=== PATIENT | male | born 1935 | race Caucasian/White ===

== ENCOUNTER 2017-02-24 09:59 | Inpatient (IN) ==
[2017-02-24] MEDS ORDERED: Naloxone 0.4 MG/ML INJ IVP PRN (13:40)
[2017-02-24] MEDS ORDERED: Ondansetron 4 MG/2 ML VIAL IVP PRN (13:40)
[2017-02-24] MEDS ORDERED: *HR* Dextrose 50 % in Water (Syg) 50 ML SYRINGE IVP PRN (13:59)
[2017-02-24] MEDS ORDERED: Dextrose Gel 15 GM PO PRN ×2 (13:59)
[2017-02-24] MEDS ORDERED: D5% in Water 1,000 ML IVC PRN (13:59)
[2017-02-24] MEDS ORDERED: *HR* Heparin 5,000 UNIT/ML VIAL IVP ONE (14:16)
[2017-02-24] MEDS ORDERED: *HR* Heparin 5,000 UNIT/ML VIAL IVP PRN ×2 (14:16)
--- NOTE | 2017-02-24 14:18 | Internal Med History&Physical ---
Date of Encounter: 02/24/17 Time of Encounter: 13:00 Assessment and Plan (1) NSTEMI (non-ST elevated myocardial infarction) Current visit: No Status: Acute 1 patient has been experiencing increasing shortness of breath as well as intermittent chest pressure which is relieved with rest. He does have a past cardiac history with a CABG 10 years ago. Upon presentation to the ER patient is atrial fibrillation which is new onset. He also appears to be in heart failure Initial troponin was 0 however continues to rise over the next 24 hours presently at 0.9 patient has been initiated on a heparin drip. Cardiology has been consulted and will see patient 2 we will obtain cardiac echo 3 continuous cardiac monitoring 4 aspirin, statin we will obtain lipid profile (2) Atrial fibrillation Current visit: Yes Status: Acute 1 this appears to be a new onset of atrial fibrillation. Patient denies any past history denies any recent palpitations. Presently rate is 90-100 we will initiate on a heparin drip 2 consult cardiology 3 continuous cardiac monitoring Qualifiers: Atrial fibrillation type: paroxysmal Qualified Code(s): I48.0 - Paroxysmal atrial fibrillation (3) DM type 2 (diabetes mellitus, type 2) Current visit: No Status: Chronic Accu-Cheks before meals at bedtime with sliding scale insulin we will hold oral medications for now Qualifiers: Diabetes mellitus complication status: without complication Diabetes mellitus rn long term care insulin use: without retirement use Qualified Code(s): E11.9 - Type 2 diabetes mellitus without complications (4) CHF (congestive heart failure) Current visit: Yes Status: Acute 1 patient has a past history of heart failure suspect this relates to atrial fibrillation which is a new onset. We will continue with Lasix 20 mg IV daily 2 continuous cardiac monitoring 3 monitor intake and output daily weights 4 low-sodium diet 5 Will obtain cardiac echo 6 cardiology consult did Qualifiers: Congestive heart failure type: unspecified congestive heart failure type Congestive heart failure chronicity: acute Qualified Code(s): I50.9 - Heart failure, unspecified (5) EVER (acute kidney injury) Current visit: Yes Status: Acute 1 patient's creatinine is 1.26 which is up from previous of 0.84, we will continue diuresis patient and monitor creatinine Monitor intake and output daily weights Monitor electrolytes Internal Medicine - H&P: HPI Chief complaint: cough,CP Admitted From: Emergency Dept Plans for Post Hospital Care: Home History of present illness: Mr. Lang is a 81 year old male past medical history of coronary artery disease with a CABG in 2011 diabetes GERD hyperlipidemia hypertension COPD PAD. According to the patient approximately 2 weeks ago he received his flu shot 2 days later he began to notice nonproductive cough. He continued to experience a cough as well as developing dyspnea which lasted approximately a week. He will send has been experiencing midsternal chest pressure that radiated into his back which occurs on exertion and is relieved with rest. The pressure started roughly 5 days ago. He does have a past history of ASHD status post 4 vessel CABG approximately 2011. He denies any stress test or heart catheter since the Surgery. He presented to the [facility] emergency department upon presentation patient was in atrial fibrillation he denies any past history of atrial fibrillation denies any palpitations. Chest x-ray showed some muscular congestion he has had lower extremity edema as well as elevated BNP. He has had increasing troponins. She was transferred to this facility for further evaluation. He is presently patient does not appear to be in any respiratory distress he denies any chest pain this time. He continues to be in atrial fibrillation with a rate of 100 blood pressure is stable. Did review his case with Dr. Pritchett who agree with plan Past Med Surg Social Fam HX - Past Medical History Medical history: arthritis, coronary artery disease, diabetes, GERD, hyperlipidemia, hypertension, myocardial infarction, peripheral artery disease, syncope Psychiatric history: no psych history - Past Surgical History Surgical History: appendectomy, coronary bypass (CABG), herniorrhaphy, LE vascular intervention, orthopedic, other - Social History Smoking Status: Never smoker Smokeless Tobacco Status: No Alcohol use: none Drug use: none - Family History Father Living Status: Hx Family Cardiac Disorders: Yes Mother Living Status: Internal Medicine - H&P: Meds Glimepiride [Amaryl] 4 mg PO DAILY 11/03/15 [History] Torsemide [Demadex] 10 mg PO DAILY 03/15/16 [History] Lisinopril/Hydrochlorothiazide [Zestoretic 20-25 mg Tablet] 1 tab PO DAILY 02/24 [History] Potassium Chloride [Klor-Con Sprinkle] 8 meq PO BID 02/24/17 [History] 3 Allergy/AdvReac Type Severity Reaction Status Date / Time No Known Allergies Allergy Verified 02/23/17 16:02 All Systems PM: A 10-system review of systems was performed and is negative for pertinent findings except as documented above in the HPI. - Constitutional Constitutional: no chills, no fever(s), no night sweats - EENT Eyes: no change in vision, no discharge, no pain, no photophobia Nose, mouth and throat: no dysphagia, no nasal discharge, no neck pain, no sore throat - Cardiovascular Cardiovascular ROS IM: chest pain, dyspnea on exertion, edema, no diaphoresis, no dyspnea, no lightheadedness, no palpitations, no syncope - Respiratory Respiratory: dyspnea on exertion, excessive phlegm production, no cough, no dyspnea, no wheezing - Gastrointestinal Gastrointestinal: no abdominal pain, no diarrhea, no hematemesis, no hematochezia, no melena, no nausea, no vomiting - Musculoskeletal Musculoskeletal ROS IM: no numbness, no tingling - Integumentary Integumentary IM: no rash, no unusual bruising - Neurological Neurological ROS: no confusion, no convulsions, no focal weakness, no numbness, no tingling, no tremor(s) - Hematologic/Lymphatic Hematologic/Lymphatic: no easy bruising - Constitutional Vitals: Temp Pulse Resp BP Pulse Ox 97.6 F 105 18 135/76 95 02/24/17 12:35 02/24/17 12:35 02/24/17 12:35 02/24/17 12:35 02/24/17 12:35 General appearance: Present: A&O X 3, answers questions appropriately - Head Head exam: Present: atraumatic, normocephalic - Eye Eye exam: Present: PERRL, conjuntiva pink, sclera anicteric Pupils: Present: PERRL - Neck Neck exam general surgery: Present: supple, trachea midline. Absent: lymphadenopathy - Respiratory Respiratory exam: Present: CTAB. Absent: accessory muscle use, rales, rhonchi, wheezes - Cardiovascular Cardiovascular exam: Present: RRR, +S1, +S2. Absent: diastolic murmur, gallop, rubs, systolic murmur - GI/Abdominal GI/Abdominal exam: Present: normal bowel sounds, soft, no peritoneal signs. Absent: distended, tenderness - Extremities Exam Extremities exam: Present: pedal edema, warm, radial pulses palpable and symmetrical. Absent: calf tenderness, cyanotic - Neurological Exam Neurological exam: Present: CN II-XII intact, oriented X3, no focal deficits. Absent: pronater drift, facial droop, speech deficit - Skin Skin exam: Present: dry, intact Internal Med - H&P Results - Labs CBC & Chem 7: 02/24/17 14:26 - EKG Data When compared to previous EKG: there is no significant change EKG comments: 02/24/17 14:59 Afib
[2017-02-24] MEDS ORDERED: Heparin 25,000 UNIT/500 ML D5W 25,000 UNIT/500 ML MLS IVC SCH (14:30)
[2017-02-24 14:47] LABS: Hematocrit 35.3 % (37.5-50.1); Hemoglobin 11.4 g/dL (12.9-16.9); Mean Corpuscular HGB Conc 32.3 g/dL (31.6-35.5); Mean Corpuscular Hemoglobin 28.2 pg (28.0-33.3); Mean Corpuscular Volume 87.4 fL (83.0-100.0); Mean Platelet Volume 13.6 fL (9.4-12.4); Platelet Count 131 K/mcL (140-400); Red Blood Count 4.04 M/mcL (4.19-5.50); Red Cell Distribution Width 12.7 % (11.5-14.5)
[2017-02-24 14:52] LABS: INR 1.3; Prothrombin Time 13.6 Seconds (9.4-12.1)
[2017-02-24 14:55] LABS: Activated Partial Thrombo Time 36.3 Seconds (26.0-36.0)
[2017-02-24] MEDS: Insulin LISPRO 300 UNITS/3 ML VIAL SQ SCH (17:12)
[2017-02-24] MEDS ORDERED: Insulin LISPRO 300 UNITS/3 ML VIAL SQ SCH (21:00)
[2017-02-25] MEDS: Benzonatate 100 MG CAPSULE PO PRN (00:43)
[2017-02-25] MEDS ORDERED: Ketorolac 15 MG/ML VIAL IVP ONE (01:04)
[2017-02-25 02:01] LABS: Basophils % 0.1 %; Eosinophils # 0.1 K/mcL (0.0-0.6); Eosinophils % 0.6 %; Hematocrit 36.6 % (37.5-50.1); Hemoglobin 11.6 g/dL (12.9-16.9); Immature Granulocytes % 0.6 % (0-4); Lymphocytes # 1.6 K/mcL (0.6-4.6); Lymphocytes % 17.7 %; Mean Corpuscular HGB Conc 31.7 g/dL (31.6-35.5); Mean Corpuscular Hemoglobin 27.8 pg (28.0-33.3); Mean Corpuscular Volume 87.8 fL (83.0-100.0); Mean Platelet Volume 13.1 fL (9.4-12.4); Monocytes # 0.7 K/mcL (0.0-1.3); Monocytes % 7.8 %; Neutrophils # 6.4 K/mcL (1.6-8.9); Platelet Count 151 K/mcL (140-400); Red Blood Count 4.17 M/mcL (4.19-5.50); Segmented Neutrophils % 73.2 %
[2017-02-25 02:13] LABS: Calcium 9.2 mg/dL (8.6-10.8); Chol/HDL Ratio 3.9 (0-4.9); Magnesium 2.1 mg/dL (1.6-2.6); Potassium 4.5 mEq/L (3.5-4.5)
[2017-02-25] MEDS ORDERED: *HR* OxyCODONE/APAP 5/325 TABLET PO ONE (05:01)
[2017-02-25] MEDS ORDERED: Insulin LISPRO 300 UNITS/3 ML VIAL SQ SCH ×2 (07:45→21:00)
--- NOTE | 2017-02-25 08:45 | Cardiology Consult Note ---
<Tej Lang - Last Filed: 02/25/17 13:32> Date of Encounter: 02/25/17 Time of Encounter: 08:45 Assessment and Plan (1) Elevated troponin Current Visit: Yes Status: Acute Trop 0.90 > 0.70 > 0.67 Likely demand ischemia origin. Denies any chest pain. No ischemic changes on EKG ECHO pending Do not recommend LHC at this time d/t acute hematoma. Recommend medical therapy at this time and will re-evaluate as an outpatient. Optimize regimen - Adding Toprol 12.5mg qd and Atorvastatin 20mg qd. Continue ASA and Plavix. (2) New onset atrial fibrillation Current Visit: Yes Status: Acute Rate in 80s today ECHO pending Start Toprol therapy that will also benefit his CHF CHADS-VASC Score = 5. Patient requires full anticoagulation therapy but will hold off d/t hematoma. ASA ok for now. Will re-visit the transition to full anticoagulation as an outpatient. (3) CHF (congestive heart failure) Current Visit: Yes Status: Chronic ECHO pending BNP 1253 Takes Demadex at home. Continue IV Lasix daily Trace edema bilateral LE No acute fluid overload Adding Toprol 12.5mg qd Qualifiers: Congestive heart failure type: unspecified congestive heart failure type Congestive heart failure chronicity: acute Qualified Code(s): I50.9 - Heart failure, unspecified (4) Abdominal wall hematoma Current Visit: Yes Status: Acute Abd CT shows hematoma in the left abdominal rectus muscle measuring approximately 10.0 x 2.6 x 11.0 cm ASA ok to use at this time. Qualifiers: Encounter type: initial encounter Qualified Code(s): S30.1XXA - Contusion of abdominal wall, initial encounter (5) EVER (acute kidney injury) Current Visit: Yes Status: Acute Medicine following. (6) Hypertension Current Visit: No Status: Chronic Appears to be stable at this time. Taking Zestoretic at home. Qualifiers: Hypertension type: essential hypertension Qualified Code(s): I10 - Essential (primary) hypertension (7) DM type 2 (diabetes mellitus, type 2) Current Visit: No Status: Chronic Defer to medicine team for management. Qualifiers: Diabetes mellitus complication status: with circulatory complication Diabetes mellitus complication detail: with peripheral angiopathy without gangrene Diabetes mellitus intermediate frame tender insulin use: without usp use Qualified Code(s): E11.51 - Type 2 diabetes mellitus with diabetic peripheral angiopathy without gangrene (8) Hyperlipidemia Current Visit: No Status: Chronic Continue home statin therapy Qualifiers: Hyperlipidemia type: unspecified Qualified Code(s): E78.5 - Hyperlipidemia , unspecified (9) PVD (peripheral vascular disease) Current Visit: No Status: Chronic (10) Chronic stasis dermatitis Current Visit: No Status: Chronic Discussion w patient/family: The assessment and plan as outlined above was discussed with the patient and/or family members who expressed understanding and agreement. All questions were answered. Thank you for involving us in the care of your patient. Please call with any questions. History of Present Illness Chief complaint: shortness of breath History of present illness: Mr. Lang is a very pleasant 81 year old male with a past medical history of CAD, DM, GERD, HTN, COPD, PAD, Hemochromatosis, and CHF who presented to the [facility] ED after transfer from [facility] with a chief complaint of shortness of breath. He states that over the last couple weeks he was experiencing worsening dypsnea without any chest pain. Denies any palpitations, orthopnea or PND. On arrival to the ED, patient was found to be in new onset atrial fibrillation with RVR. Troponins were elevated at 0.90 > 0.70 > 0.67. No ischemic changes on EKG. CXR shows very small right plueral effusion. Patient was started on Heparin drip for NSTEMI workup, admitted via the hospitalist service and thus, cardiology was consulted. On evaluation, heart rate was now in 80s without any new chest pains. ECHO pending. Patient reports that he quit smoking 30 years ago with no EtOH use. Family history of CHF, DM and LA. Yesterday, patient sat up and felt a "pop in my belly" and CT of the abd demonstrated a large hematoma in his left rectus abdominus muscle and findings consisted with gallbladder disease. Heparin was discontinued and surgery consulted. RUQ US pending as well. He reports significant abdominal pain with sitting up in bed and coughing. We will continue to follow and offer further recommendations or interventions. Past Med Surg Social Fam HX - Past Medical History Medical history: arthritis, coronary artery disease, diabetes, GERD, hyperlipidemia, hypertension, myocardial infarction, peripheral artery disease, syncope Psychiatric history: no psych history - Past Surgical History Surgical History: appendectomy, coronary bypass (CABG), herniorrhaphy, LE vascular intervention, orthopedic, other - Social History Smoking Status: Never smoker Smokeless Tobacco Status: No Alcohol use: none Drug use: none - Family History Father Living Status: Hx Family Cardiac Disorders: Yes Mother Living Status: Medications and Allergies Glimepiride [Amaryl] 4 mg PO DAILY 11/03/15 [History] Torsemide [Demadex] 10 mg PO DAILY 03/15/16 [History] Lisinopril/Hydrochlorothiazide [Zestoretic 20-25 mg Tablet] 1 tab PO DAILY 02/24 [History] Potassium Chloride [Klor-Con Sprinkle] 8 meq PO BID 02/24/17 [History] 3 Allergy/AdvReac Type Severity Reaction Status Date / Time No Known Allergies Allergy Verified 02/23/17 16:02 All Systems Review: A 10-system review of systems was performed and is negative for pertinent findings except as documented above in the HPI. - Constitutional Constitutional: no fever(s) - Cardiovascular Cardiovascular: as per HPI - Respiratory Respiratory: dyspnea - Gastrointestinal Gastrointestinal: abdominal pain - Musculoskeletal Musculoskeletal: back pain - Integumentary Integumentary: no erythema - Neurological Neurological: no focal weakness Physical Examination Vital Signs, Last 4 Hours Temp Pulse Resp BP Pulse Ox 02/25/17 07:20 97.5 F L 85 16 126/76 96 General: Conversant, No Apparent Distress HEENT: Atraumatic, Normocephaly, Mucus Membranes Moist Neck: No JVD, Normal carotid pulses Cardiac: Normal S1 and S2, Other (irregular irregular) Lungs: Normal Breath Sounds, No Wheeze, Rales, Rhonchi Neuro: Alert and responsive, No focal deficits noted Abdomen: Other (large, TTP, hematoma lateral to midline between LUQ/LLQ) Musculoskeletal: No Chest Wall Tenderness Extremities: Other (trace edema bilateral, stasis dermatitis, bilateral tow amputations) Results 02/25/17 01:47 02/25/17 01:47 Lab Results 02/24/17 02/24/17 02/24/17 14:09 14:26 14:26 WBC 7.9 D Hgb 11.4 L Hct 35.3 L Plt Count 131 L INR 1.3 APTT 36.3 H Sodium Potassium Chloride Carbon Dioxide BUN Creatinine Glucose Calcium Magnesium Troponin I 0.90 H* Lipase 02/24/17 02/24/17 02/25/17 19:52 21:08 01:47 WBC Hgb Hct Plt Count INR APTT 44.8 H Sodium Potassium Chloride Carbon Dioxide BUN Creatinine Glucose Calcium Magnesium Troponin I 0.70 H* 0.67 H* Lipase 02/25/17 02/25/17 02/25/17 01:47 01:47 04:55 WBC 8.7 Hgb 11.6 L Hct 36.6 L Plt Count 151 INR APTT Sodium 138 Potassium 4.5 Chloride 103 Carbon Dioxide 26 BUN 42 H D Creatinine 1.46 H Glucose 222 H Calcium 9.2 Magnesium 2.1 Troponin I Lipase 30 - Imaging and Cardiology Chest Xray: report reviewed, image reviewed Echo: other (pending) Other Results: Abd CT - Report and image reviewed - EKG Interpretation EKG results cardiology: personally reviewed, right bundle branch block, other ( afib) Consult Discharge Plan - Plan Referrals: Shirley Sebastian, HOSPITALITY SPECIALIST [Primary Care Provider] - <Bri Vogel - Last Filed: 02/25/17 17:53> Date of Encounter: 02/25/17 - Attending Attestation I examined this patient and my medical decision-making was reviewed with the Resident Physician. I agree with the documented findings, disposition and treatment plan as described except to the extent set forth below. Mr. Lang was transfered from [facility] for worsening SOB which he has noticed over the past few weeks. He was noticed to be in newly discovered AFIB RVR upon admission with elevated troponin. Incidentally, he was found to also have a large hematoma in his left rectus abdominus muscle on CT after experiencing abdominal discomfort. PLAN: 1. AFIB RVR: Patient is now rate controlled in the 80's. Recommend starting low dose Toprol. Echo pending. CHADSVASC score is 5 - ideally would recommend full anticoagulation. However, given development of large hematoma, recommend against blood thinning therapy. Can be reconsidered as an outpatient. 2. Elevated troponin: May be related to demand ischemia in setting of AF RVR. However, does have a history of CAD. Further recommendations following echo results. For now, recommend antiplatelet therapy, statin and adding beta aidan. 3. Edema: Recommend IV diuresis with careful watch on kidney function. Assessment and Plan Discussion w patient/family: The assessment and plan as outlined above was discussed with the patient and/or family members who expressed understanding and agreement. All questions were answered. Thank you for involving us in the care of your patient. Please call with any questions. History of Present Illness History of present illness: Mr. Lang is a 81 year old male All Systems Review: A 10-system review of systems was performed and is negative for pertinent findings except as documented above in the HPI. Physical Examination Vital Signs, Last 4 Hours Temp Pulse Resp BP Pulse Ox 02/25/17 16:38 125/80 02/25/17 13:59 97.5 F L 86 14 134/76 96 Results 02/25/17 01:47 02/25/17 01:47 Lab Results 02/24/17 02/24/17 02/25/17 19:52 21:08 01:47 WBC Hgb Hct Plt Count APTT 44.8 H Sodium Potassium Chloride Carbon Dioxide BUN Creatinine Glucose Calcium Magnesium Troponin I 0.70 H* 0.67 H* Lipase 02/25/17 02/25/17 02/25/17 01:47 01:47 04:55 WBC 8.7 Hgb 11.6 L Hct 36.6 L Plt Count 151 APTT Sodium 138 Potassium 4.5 Chloride 103 Carbon Dioxide 26 BUN 42 H D Creatinine 1.46 H Glucose 222 H Calcium 9.2 Magnesium 2.1 Troponin I Lipase 30
--- NOTE | 2017-02-25 08:47 | General Surgery Consult Note ---
<Anyi Perez - Last Filed: 02/25/17 12:28> Date of Encounter: 02/25/17 Time of Encounter: 08:47 Assessment and Plan (1) Cholelithiasis Current Visit: Yes Status: Acute Abdominal ultrasound noted mild gall bladder wall thickening and cholithias, positive gleason's sign; however patient states related to hematoma. He denies abdominal pain, (outside the hematoma site), denies abdominal pain at home, and states he only feels nauseated when he eats spicy foods. Plan: No urgent surgical intervention noted. Would recommend IV abx currently and patient to follow-up for possible interval cholecystectomy when safe from a cardiology standpoint. Will review above with Dr. Benton. Qualifiers: Cholelithiasis location: gallbladder Cholecystitis presence: without cholecystitis Biliary obstruction: without biliary obstruction Qualified Code(s): K80.20 - Calculus of gallbladder without cholecystitis without obstruction (2) Abdominal wall hematoma Current Visit: Yes Status: Acute Qualifiers: Encounter type: initial encounter Qualified Code(s): S30.1XXA - Contusion of abdominal wall, initial encounter (3) NSTEMI (non-ST elevated myocardial infarction) Current Visit: No Status: Acute (4) Atrial fibrillation Current Visit: Yes Status: Acute Qualifiers: Atrial fibrillation type: paroxysmal Qualified Code(s): I48.0 - Paroxysmal atrial fibrillation (5) EVER (acute kidney injury) Current Visit: Yes Status: Acute History of Present Illness Consult date: 02/25/17 (Dr. Benton) Reason for consult: other Requesting physician: Jeremy Salazar History of present illness: Reason For Consult: CT Findings compatible with hematoma in the left abdominal rectus muscle. In addtition to Multiple gallstones and questionable pericholecystic edema with cholecystitis. Consulting Provider: Dr. Jeremy Salazar Consulted Surgeon: Dr. Laurie Valderrama Mr. Lang is an 81 year old male who presented with complaints of chest pain. Notably his past medical history includes a remote H approximately 10 years ago (vessels are unknown at this time), new onset paroxysmal atrial fibrillation, type II diabetes, hypertension, hyperlipidemia, peripheral vascular disease, CHF, azotemia, and kidney injury. He reports a two-week history of cough and chest discomfort with which he associated with a recent flu shot. He had been to see his primary care provider who noted a NSTEMI and recommended evaluation the emergency department for admission. He denies headache, dizziness, chest pain, or shortness of breath, or abdominal discomfort currently. He does report left upper/outer abdominal wall discomfort associated with "this great big knot in my belly now." He reports nausea only if he eats spicy food. Denies constipation or diarrhea. He denies changes in bowel habits, black, bloody, or tarry stool. He denies generalized weakness or fevers. He endorses cough and chest discomfort associated with the cough that is not changed since his presentation. His hospital course has included initiation of heparin gtt for NSTEMI, CXR showing tiny right pleural effusion, and subsequently a CT of the abdomen and pelvis with findings compatible with a hematoma in the left abdominal rectus muscle (heparin has been stopped), multiple gallstones, and questionable pericholecystic edema with concerns for cholecystitis. An echo and Shmuel ultrasound have been completed but are not resulted at this time. His troponin I remains elevated at 0.67 and his white blood cell count is normal. Past Med Surg Social Fam HX - Past Medical History Medical history: arthritis, coronary artery disease, diabetes, GERD, hyperlipidemia, hypertension, myocardial infarction, peripheral artery disease, syncope Psychiatric history: no psych history - Past Surgical History Surgical History: appendectomy, coronary bypass (CABG), herniorrhaphy, LE vascular intervention, orthopedic, other - Social History Smoking Status: Never smoker Smokeless Tobacco Status: No Alcohol use: none Drug use: none - Family History Father Living Status: Hx Family Cardiac Disorders: Yes Mother Living Status: Medications and Allergies Glimepiride [Amaryl] 4 mg PO DAILY 11/03/15 [History] Torsemide [Demadex] 10 mg PO DAILY 03/15/16 [History] Lisinopril/Hydrochlorothiazide [Zestoretic 20-25 mg Tablet] 1 tab PO DAILY 02/24 [History] Potassium Chloride [Klor-Con Sprinkle] 8 meq PO BID 02/24/17 [History] 3 Allergy/AdvReac Type Severity Reaction Status Date / Time No Known Allergies Allergy Verified 02/23/17 16:02 Review of Systems All systems PM: reviewed and no additional remarkable complaints except as stated All systems PM: A 10-system review of systems was performed and is negative for pertinent findings except as documented above in the HPI. General Surgery Exam Initial Vital Signs Temp Pulse Resp BP Pulse Ox 97.6 F 105 18 135/76 95 02/24/17 12:35 02/24/17 12:35 02/24/17 12:35 02/24/17 12:35 02/24/17 12:35 - General physical appearance well developed, well nourished, moderate distress (states left abdominal pain) - Eyes other (noted left eye lid scarring) - ENT atraumatic, normocephalic - Neck trachea midline - Respiratory normal expansion, normal respiratory effort, clear to auscultation - Cardiovascular Cardiovascular exam: Present: irregular rhythm, murmurs - Abdomen Abdomen general surgery: Present: bowel sounds present, tender (LUQ). Absent: soft (Firm area in the LUQ aprox grapefruit size. No redness noted.) Hernia: Present: none - Integumentary Integumentary general surgery: Present: warm and dry, no abnormal pigmentation - Neurologic Present: CN 2-12 grossly intact, normal coordination, normal sensation - Musculoskeletal Present: normal gait, normal posture - Psychiatric Psychiatric general surgery: Present: A&Ox3, appropriate, oriented to person, oriented to place, oriented to time, speech is normal, memory intact Exam Initial Vital Signs Temp Pulse Resp BP Pulse Ox 97.6 F 105 18 135/76 95 02/24/17 12:35 02/24/17 12:35 02/24/17 12:35 02/24/17 12:35 02/24/17 12:35 Results - Labs 02/25/17 01:47 02/25/17 01:47 Abnormal lab results RBC 4.17 M/mcL (4.19-5.50) L 02/25/17 01:47 Hgb 11.6 g/dL (12.9-16.9) L 02/25/17 01:47 Hct 36.6 % (37.5-50.1) L 02/25/17 01:47 MCH 27.8 pg (28.0-33.3) L 02/25/17 01:47 MPV 13.1 fL (9.4-12.4) H 02/25/17 01:47 PT 13.6 Seconds (9.4-12.1) H 02/24/17 14:26 APTT 44.8 Seconds (26.0-36.0) H 02/24/17 21:08 BUN 42 mg/dL (8-26) H D 02/25/17 01:47 Creatinine 1.46 mg/dL (0.72-1.25) H 02/25/17 01:47 Est GFR ( Amer) 56 (> 60) L 02/25/17 01:47 Est GFR (Non-Af Amer) 46 (> 60) L 02/25/17 01:47 BUN/Creatinine Ratio 29 (6-26) H 02/25/17 01:47 Glucose 222 mg/dL (70-99) H 02/25/17 01:47 POC Glucose 113 (58-89) H 02/24/17 20:02 Calculated Osmolality 303 (280-300) H 02/25/17 01:47 Troponin I 0.67 ng/mL (0-0.03) H* 02/25/17 01:47 HDL Cholesterol 35 mg/dL (40-59) L 02/25/17 01:47 Diabetes panel 02/25/17 Range/Units 01:47 Sodium 138 (136-145) mEq/L Potassium 4.5 (3.5-4.5) mEq/L Chloride 103 (98-109) mEq/L Carbon Dioxide 26 (19-29) mEq/L BUN 42 H D (8-26) mg/dL Creatinine 1.46 H (0.72-1.25) mg/dL Glucose 222 H (70-99) mg/dL Calcium 9.2 (8.6-10.8) mg/dL Triglycerides 71 (< 150) mg/dL HDL Cholesterol 35 L (40-59) mg/dL Calcium panel 02/25/17 Range/Units 01:47 Calcium 9.2 (8.6-10.8) mg/dL Pituitary panel 02/25/17 Range/Units 01:47 Sodium 138 (136-145) mEq/L Potassium 4.5 (3.5-4.5) mEq/L Chloride 103 (98-109) mEq/L Carbon Dioxide 26 (19-29) mEq/L BUN 42 H D (8-26) mg/dL Creatinine 1.46 H (0.72-1.25) mg/dL Glucose 222 H (70-99) mg/dL Calcium 9.2 (8.6-10.8) mg/dL Adrenal panel 02/25/17 Range/Units 01:47 Sodium 138 (136-145) mEq/L Potassium 4.5 (3.5-4.5) mEq/L Chloride 103 (98-109) mEq/L Carbon Dioxide 26 (19-29) mEq/L BUN 42 H D (8-26) mg/dL Creatinine 1.46 H (0.72-1.25) mg/dL Glucose 222 H (70-99) mg/dL Calcium 9.2 (8.6-10.8) mg/dL All other labs normal. - Imaging Chest x-ray: report reviewed CT scan - abdomen: report reviewed EKG: report reviewed Additional studies: Chest/Abdomen X-ray 02/25/17 00:05 IMPRESSION: Tiny right pleural effusion. No bowel obstruction or free air. D/ / 02/25/2017 07:15:00 Duncan Olivia MD / norberto Interpreting Provider: Duncan Olivia MD Abdomen CT 02/25/17 02:19 IMPRESSION: 1. Findings compatible with hematoma in the left abdominal rectus muscle. 2. Multiple gallstones. Question pericholecystic edema which can be seen with cholecystitis. Ultrasound may be helpful for further assessment as indicated. 3. Right pleural effusion. D/ / 02/25/2017 07:25:29 Robin Youngblood MD / norberto Interpreting Provider: Robin Youngblood MD Consult Discharge Plan - Plan Referrals: Shirley Sebastian, AUTO BODY MECHANIC APPRENTICE [Primary Care Provider] - <Laurie Benton - Last Filed: 02/26/17 16:23> Date of Encounter: 02/25/17 Assessment and Plan (1) Abdominal wall hematoma Current Visit: Yes Status: Acute patient with a new abdominal wall hematoma due to anticoagulation no role for surgical intervention at this time pain control ice to area stool softeners Qualifiers: Encounter type: initial encounter Qualified Code(s): S30.1XXA - Contusion of abdominal wall, initial encounter (2) Cholelithiasis Current Visit: Yes Status: Acute patient with incidental gallstones and without symptoms. no need for surgical intervention. discussed with patient what symptoms of gallbladder disease would be and to call if any of those symptoms occur will sign off currently, please call back if needed Qualifiers: Cholelithiasis location: gallbladder Cholecystitis presence: without cholecystitis Biliary obstruction: without biliary obstruction Qualified Code(s): K80.20 - Calculus of gallbladder without cholecystitis without obstruction History of Present Illness Reason for consult: abdominal pain History of present illness: Patient is here in hospital for chest pain. He diagnosed with an NSTEMI and started on a heparin drip. He started having left abdominal pain and a CT scan of the abdomen and pelvis was done which showed a left rectus hematoma and incidental gallstones and possible pericholecystic fluid. Patient denies any RUQ pain, nausea or emesis. He has had a history of those symptoms remotely in the past but nothing recently or currently. Denies diarrhea. US gallbladder showed stones, no wall thickening or pericholecystic fluid and normal cbd. Past Med Surg Social Fam HX - Past Medical History Source: patient - Social History Occupational status: previously employed Current living situation: Home, With Family Review of Systems All systems PM: reviewed and no additional remarkable complaints except as stated All systems PM: A 10-system review of systems was performed and is negative for pertinent findings except as documented above in the HPI. General Surgery Exam Initial Vital Signs Temp Pulse Resp BP Pulse Ox 97.6 F 105 18 135/76 95 02/24/17 12:35 02/24/17 12:35 02/24/17 12:35 02/24/17 12:35 02/24/17 12:35 - General physical appearance well developed, well nourished, moderate distress - Eyes PERRL, normal ocular movement - ENT normal mucosa - Neck trachea midline - Respiratory normal expansion, normal respiratory effort - Abdomen Abdomen general surgery: Present: bowel sounds present, soft (RUQ without pain) , tender (left abdomen and firm at area of abdominal wall hematoma). Absent: guarding, rebound - Integumentary Integumentary general surgery: Present: warm and dry, no abnormal pigmentation - Neurologic Present: CN 2-12 grossly intact - Musculoskeletal Present: normal posture - Psychiatric Psychiatric general surgery: Present: A&Ox3, speech is normal Exam Initial Vital Signs Temp Pulse Resp BP Pulse Ox 97.6 F 105 18 135/76 95 02/24/17 12:35 02/24/17 12:35 02/24/17 12:35 02/24/17 12:35 02/24/17 12:35 Results - Labs 02/26/17 05:23 02/26/17 05:23 Abnormal lab results RBC 3.52 M/mcL (4.19-5.50) L 02/26/17 05:23 Hgb 9.8 g/dL (12.9-16.9) L D 02/26/17 05:23 Hct 31.2 % (37.5-50.1) L 02/26/17 05:23 MCH 27.8 pg (28.0-33.3) L 02/26/17 05:23 MCHC 31.4 g/dL (31.6-35.5) L 02/26/17 05:23 MPV 13.2 fL (9.4-12.4) H 02/26/17 05:23 PT 13.6 Seconds (9.4-12.1) H 02/24/17 14:26 Carbon Dioxide 33 mEq/L (19-29) H 02/26/17 05:23 BUN 40 mg/dL (8-26) H 02/26/17 05:23 Creatinine 1.27 mg/dL (0.72-1.25) H 02/26/17 05:23 Est GFR (Non-Af Amer) 55 (> 60) L 02/26/17 05:23 BUN/Creatinine Ratio 31 (6-26) H 02/26/17 05:23 Glucose 68 mg/dL (70-99) L 02/26/17 05:23 POC Glucose 318 (58-89) H 02/25/17 20:06 Calcium 8.5 mg/dL (8.6-10.8) L 02/26/17 05:23 Troponin I 0.67 ng/mL (0-0.03) H* 02/25/17 01:47 HDL Cholesterol 35 mg/dL (40-59) L 02/25/17 01:47 Diabetes panel 02/26/17 Range/Units 05:23 Sodium 141 (136-145) mEq/L Potassium 4.2 (3.5-4.5) mEq/L Chloride 103 (98-109) mEq/L Carbon Dioxide 33 H (19-29) mEq/L BUN 40 H (8-26) mg/dL Creatinine 1.27 H (0.72-1.25) mg/dL Glucose 68 L (70-99) mg/dL Calcium 8.5 L (8.6-10.8) mg/dL Calcium panel 02/26/17 Range/Units 05:23 Calcium 8.5 L (8.6-10.8) mg/dL Phosphorus 4.4 (2.3-4.7) mg/dL Pituitary panel 02/26/17 Range/Units 05:23 Sodium 141 (136-145) mEq/L Potassium 4.2 (3.5-4.5) mEq/L Chloride 103 (98-109) mEq/L Carbon Dioxide 33 H (19-29) mEq/L BUN 40 H (8-26) mg/dL Creatinine 1.27 H (0.72-1.25) mg/dL Glucose 68 L (70-99) mg/dL Calcium 8.5 L (8.6-10.8) mg/dL Adrenal panel 02/26/17 Range/Units 05:23 Sodium 141 (136-145) mEq/L Potassium 4.2 (3.5-4.5) mEq/L Chloride 103 (98-109) mEq/L Carbon Dioxide 33 H (19-29) mEq/L BUN 40 H (8-26) mg/dL Creatinine 1.27 H (0.72-1.25) mg/dL Glucose 68 L (70-99) mg/dL Calcium 8.5 L (8.6-10.8) mg/dL All other labs normal. - Imaging CT scan - abdomen: report reviewed, image reviewed CT scan - pelvis: report reviewed, image reviewed US - abdomen: report reviewed - Attending Attestation I have personally performed a face to face evaluation on this patient. I have reviewed and agree with the care plan. History and Exam by me shows:
[2017-02-25] MEDS ORDERED: Furosemide 20 MG/2 ML VIAL IVP SCH (09:00)
[2017-02-25] MEDS: *HR* Morphine 2 MG/ML SYRINGE IVP PRN ×2 (09:37→16:40)
[2017-02-25] MEDS: Aspirin 81 MG TAB.CHEW PO SCH (09:41)
[2017-02-25] MEDS: Insulin LISPRO 300 UNITS/3 ML VIAL SQ SCH ×5 (09:57→23:05)
[2017-02-25] MEDS: Piperacillin/Tazobactam 3.375 GM in D5% in Water 50 ML IVPB SCH ×3 (10:02→23:40)
[2017-02-25] MEDS: Metoprolol XL (24 HR) Succ 25 MG TAB.ER.24H PO SCH (14:02)
[2017-02-25] MEDS ORDERED: Furosemide 40 MG/4 ML VIAL IVP ONE (15:28)
--- NOTE | 2017-02-25 17:46 | Internal Med Progress Note ---
Date of Encounter: 02/25/17 Time of Encounter: 14:20 - Subjective Interval history: Patient seen and examined at bedside. Resting in bed and reports of having severe abd pain which is controlled with pain medications. Denies any chest pain , nausea or vomiting. Reports of feeling hungry. Assessment/Plan: 1. Acute cholecystitis surgery evaluation appreciated continue empiric IV abx pain control supportive care 2. NSTEMI/Afib appears to be no onset Afib cardiology evaluation appreciated discontinued heparin gtt due to hematoma medical therapy recommended, added BB, statin, continue Asa and plavix pt will need care home AC, outpatient follow up recommended 3. CHF f/u 2D echo continue diuretic therapy will continue to monitor 4. ABD wall hematoma surgery on board holding anticoagulation at this itme 5. DM continue sliding scale insulin algorithm monitor FS and BG ADA diet 6. HTN BP within acceptable range continue home meds 7. HLD continue statin therapy 8. EVER likely secondary to diuretic therapy will closely monitor - Constitutional Vitals: Temp Pulse Resp BP Pulse Ox 97.5 F L 86 14 125/80 96 02/25/17 13:59 02/25/17 13:59 02/25/17 13:59 02/25/17 16:38 02/25/17 13:59 General appearance: Present: A&O X 3, no acute distress, answers questions appropriately - Head Head exam: Present: atraumatic, normocephalic - Eye Eye exam: Present: conjuntiva pink, sclera anicteric - Respiratory Respiratory exam: Absent: accessory muscle use, rales (coarse breath sounds on bilateral bases ), rhonchi, wheezes - Cardiovascular Cardiovascular exam: Present: irregular rhythm, +S1, +S2. Absent: diastolic murmur, gallop, rubs, systolic murmur - GI/Abdominal GI/Abdominal exam: Present: normal bowel sounds (RUQ tenderness,hematoma noted on left abd ), soft, no peritoneal signs - Extremities Exam Extremities exam: Present: pedal edema, warm, radial pulses palpable and symmetrical. Absent: calf tenderness - Neurological Exam Neurological exam: Present: alert, oriented X3 - Psychiatric Psychiatric exam: Present: normal affect, normal mood Internal Medicine: Result - Labs CBC & Chem 7: 02/25/17 01:47 02/25/17 01:47 Labs: Short CBC 02/25/17 Range/Units 01:47 WBC 8.7 (4.3-11.1) K/mcL Hgb 11.6 L (12.9-16.9) g/dL Hct 36.6 L (37.5-50.1) % Plt Count 151 (140-400) K/mcL Neutrophils # 6.4 (1.6-8.9) K/mcL BMP 02/25/17 01:47 Sodium 138 Potassium 4.5 Chloride 103 Carbon Dioxide 26 BUN 42 H D Creatinine 1.46 H Glucose 222 H Calcium 9.2 Cardiac Enzymes 02/24/17 02/25/17 Range/Units 19:52 01:47 Troponin I 0.70 H* 0.67 H* (0-0.03) ng/mL - ABG Interpretation ABG results: PT/INR, D-dimer PT 13.6 Seconds (9.4-12.1) H 02/24/17 14:26 - Impressions Impressions Chest/Abdomen X-ray 02/25/17 00:05 IMPRESSION: Tiny right pleural effusion. No bowel obstruction or free air. D/ / 02/25/2017 07:15:00 Duncan Olivia MD / norberto Interpreting Provider: Duncan Olivia MD Abdomen CT 02/25/17 02:19 IMPRESSION: 1. Findings compatible with hematoma in the left abdominal rectus muscle. 2. Multiple gallstones. Question pericholecystic edema which can be seen with cholecystitis. Ultrasound may be helpful for further assessment as indicated. 3. Right pleural effusion. D/ / 02/25/2017 07:25:29 Robin Youngblood MD / norberto Interpreting Provider: Robin Youngblood MD Echocardiogram 02/25/17 07:30 Impressions: LVEF 30-35%. Global left ventricular systolic dysfunction. Indeterminate diastolic function. Normal right ventricula size. Mild right ventricular hypokinesis. Moderately dilated left atrium. Mild mitral regurgitation. Mild tricuspid regurgitation. Mild pulmonary hypertension. Left Ventricular Wall Motion: Rest Echo Findings The apex, apical inferior, mid inferior, basal inferior, apical anterior, mid anterior, basal anterior, apical septal, mid inferior septal, basal inferior septal, apical lateral, mid anterior lateral, basal anterior lateral, mid anterior septal, mid inferior lateral, basal anterior septal and basal inferior lateral bains were hypokinetic. Findings: Study Quality * Technically adequate exam. ECG Findings * Atrial fibrillation. Left Ventricle * LVEF 30-35%. * Global left ventricular systolic dysfunction. * Indeterminate diastolic function. Right Ventricle * Normal right ventricula size. Mild right ventricular hypokinesis. Left Atrium * Moderately dilated left atrium. Right Atrium * Moderately dilated right atrium. Interatrial Septum * Interatrial septum not well evaluated. Aortic Valve * No aortic regurgitation. * No aortic stenosis. * Trileaflet aortic valve. Mitral Valve * Normal mitral valve structure. * Mild mitral regurgitation. * No mitral stenosis. Tricuspid Valve * Normal tricuspid valve structure. * Mild tricuspid regurgitation. * Mild pulmonary hypertension. Pulmonic Valve * Normal pulmonic valve structure and function. * No pulmonic regurgitation. Aorta * Normally sized aortic root. Pericardium * The pericardium appears normal. IVC * Normal IVC dimensions and inspiratory collapse. Pulmonary Artery * Normal visualized portions of the main pulmonary artery. Abdomen Ultrasound 02/25/17 08:00 IMPRESSION: Cholelithiasis with mild gallbladder wall thickening and positive sonographic Engle's sign. Findings may be related to acute cholecystitis. Clinical correlation recommended. D/ / Prudence Cordero MD / Prudence Cordero MD Interpreting Provider: Prudence Cordero MD Consult Discharge Plan - Plan Referrals: Shirley Sebastian, RADIATION CONTROL WORKER [Primary Care Provider] -
[2017-02-25] MEDS: *HR* HYDROcodone/Acet 5/325 mg TABLET PO PRN (21:57)
[2017-02-26 06:10] LABS: Basophils % 0.3 %; Eosinophils # 0.1 K/mcL (0.0-0.6); Eosinophils % 1.5 %; Hematocrit 31.2 % (37.5-50.1); Immature Granulocytes % 0.6 % (0-4); Lymphocytes # 1.5 K/mcL (0.6-4.6); Lymphocytes % 22.7 %; Mean Corpuscular HGB Conc 31.4 g/dL (31.6-35.5); Mean Corpuscular Hemoglobin 27.8 pg (28.0-33.3); Mean Corpuscular Volume 88.6 fL (83.0-100.0); Mean Platelet Volume 13.2 fL (9.4-12.4); Monocytes # 0.7 K/mcL (0.0-1.3); Neutrophils # 4.3 K/mcL (1.6-8.9); Platelet Count 156 K/mcL (140-400); Red Blood Count 3.52 M/mcL (4.19-5.50); Red Cell Distribution Width 13.1 % (11.5-14.5); Segmented Neutrophils % 64.9 %
[2017-02-26 06:14] LABS: Hemoglobin 9.8 g/dL (12.9-16.9)
[2017-02-26 06:23] LABS: BUN/Creatinine Ratio 31 (6-26); Blood Urea Nitrogen 40 mg/dL (8-26); Calcium 8.5 mg/dL (8.6-10.8); Carbon Dioxide 33 mEq/L (19-29); Chloride 103 mEq/L (98-109); Glucose 68 mg/dL (70-99); Magnesium 2.2 mg/dL (1.6-2.6); Osmolality,Calculated 300 (280-300); Phosphorous 4.4 mg/dL (2.3-4.7); Potassium 4.2 mEq/L (3.5-4.5); Sodium 141 mEq/L (136-145); eGFR For African Americans > 60 (> 60); eGFR For Non-African Americans 55 (> 60)
[2017-02-26] MEDS: Piperacillin/Tazobactam 3.375 GM in D5% in Water 50 ML IVPB SCH ×2 (08:24→16:04)
[2017-02-26] MEDS: Metoprolol XL (24 HR) Succ 25 MG TAB.ER.24H PO SCH (08:24)
[2017-02-26] MEDS: Aspirin 81 MG TAB.CHEW PO SCH (08:24)
[2017-02-26] MEDS: Insulin LISPRO 300 UNITS/3 ML VIAL SQ SCH ×4 (08:32→20:55)
--- NOTE | 2017-02-26 08:45 | Cardiology Progress Note ---
<Tej Lang - Last Filed: 02/26/17 11:52> Date of Encounter: 02/26/17 Time of Encounter: 08:43 Assessment and Plan (1) CHF (congestive heart failure) Current Visit: Yes Status: Chronic NYHA Class IV ECHO from 02/25/17: EF 30-35%, Global LV systolic dysfunction, mild RV hypokinesis, mod dilated RA, mild MR, TR, and pulmonary hypertension Requesting records from [facility] to compare EF. Again, we would recommend C to further evaluate, but is contraindicated with hematoma. Recommend further discussion of LHC as an outpatient after hematoma resolves. BNP 1253 Continue Lasix, Toprol, Statin, ASA. On discharge, recommend discontinuing ACEi/Thiazide combo and Demadex home meds. Start on PO Lasix 20mg qd and will recommend starting ACEi during outpatient followup d/t mid/low BP currently. Cardiology will sign off at this time. Please re-consult if there are any future concerns or questions. Thanks for involving us in Mr. Lang's care. Qualifiers: Congestive heart failure type: systolic Congestive heart failure chronicity : acute on chronic Qualified Code(s): I50.23 - Acute on chronic systolic ( congestive) heart failure (2) New onset atrial fibrillation Current Visit: Yes Status: Acute After starting patient on Toprol 12.5 qd, HR down to 60s. BP stable. Telemtry shows a-fib ECHO from 02/25/17: EF 30-35%, Global LV systolic dysfunction, mild RV hypokinesis, mod dilated RA, mild MR, TR, and pulmonary hypertension. No thrombus present CHADS-VASC Score = 5. Patient requires full anticoagulation therapy but will hold off d/t hematoma. ASA ok for now. Outpatient management for discussion of ESTEPHANIE cardioversion as well as transition to full anticoagulation (3) Elevated troponin Current Visit: Yes Status: Acute Trop 0.90 > 0.70 > 0.67 Likely demand ischemia origin. Denies any chest pain. No ischemic changes on EKG Do not recommend LHC at this time d/t acute hematoma. Recommend medical therapy at this time and will re-evaluate as an outpatient. Optimize regimen - Toprol 12.5mg qd and Atorvastatin 20mg qd. Continue ASA and Plavix. (4) CAD (coronary artery disease) Current Visit: Yes Status: Acute History of CABG 4 vessel in 2012. Optimized medical therapy. Qualifiers: Coronary Disease-Associated Artery/Lesion type: unspecified vessel or lesion type [place] vs. transplanted heart: [place] heart Associated angina: without angina Qualified Code(s): I25.10 - Atherosclerotic heart disease of [place] coronary artery without angina pectoris (5) Abdominal wall hematoma Current Visit: Yes Status: Acute Abd CT shows hematoma in the left abdominal rectus muscle measuring approximately 10.0 x 2.6 x 11.0 cm ASA ok to use at this time. Pain and size have diminished. Qualifiers: Encounter type: initial encounter Qualified Code(s): S30.1XXA - Contusion of abdominal wall, initial encounter (6) EVER (acute kidney injury) Current Visit: Yes Status: Acute Medicine following. Cr stablized. (7) Hypertension Current Visit: No Status: Chronic Appears to be stable at this time. Qualifiers: Hypertension type: essential hypertension Qualified Code(s): I10 - Essential (primary) hypertension (8) DM type 2 (diabetes mellitus, type 2) Current Visit: No Status: Chronic Defer to medicine team for management. Qualifiers: Diabetes mellitus complication status: with circulatory complication Diabetes mellitus complication detail: with peripheral angiopathy without gangrene Diabetes mellitus terminal manager insulin use: without penitentiary use Qualified Code(s): E11.51 - Type 2 diabetes mellitus with diabetic peripheral angiopathy without gangrene (9) Hyperlipidemia Current Visit: No Status: Chronic Continue atorvastatin Qualifiers: Hyperlipidemia type: unspecified Qualified Code(s): E78.5 - Hyperlipidemia , unspecified (10) PVD (peripheral vascular disease) Current Visit: No Status: Chronic (11) Chronic stasis dermatitis Current Visit: No Status: Chronic Discussion w patient/family: The assessment and plan as outlined above was discussed with the patient and/or family members who expressed understanding and agreement. All questions were answered. Thank you for involving us in the care of your patient. Please call with any questions. Subjective Principal diagnosis: New A-fib, elevated troponins Interval history: Patient is laying in bed comfortably this morning. No concerns overnight. HR down to 60s. Reports PND and orthopnea. States again that he sometimes gets short of breath at rest. Sleeps in a recliner at home. Hematoma pain has improved overnight. No chest pains, palpitations, or LE edema. Objective Vital Signs, Last 4 Hours Temp Pulse Resp BP Pulse Ox 02/26/17 07:34 97.6 F 68 17 114/68 95 General: Conversant, No Apparent Distress HEENT: Atraumatic, Normocephaly, Mucus Membranes Moist Neck: No JVD, Normal carotid pulses Cardiac: Normal S1 and S2, No Murmur, Other (irregular irregular) Lungs: Normal Breath Sounds, No Wheeze, Rales, Rhonchi Neuro: Alert and responsive, No focal deficits noted Abdomen: Other (large, TTP, hematoma lateral to midline between LUQ/LLQ) Skin: No rashes noted on visualized skin Musculoskeletal: No Chest Wall Tenderness Extremities: Normal Pulses, Other (trace edema bilateral, stasis dermatitis, bilateral toe amputations) Results 02/26/17 05:23 02/26/17 05:23 Lab Results 02/26/17 02/26/17 02/26/17 05:23 05:23 05:23 WBC 6.7 Hgb 9.8 L D Hct 31.2 L Plt Count 156 APTT 28.8 Sodium 141 Potassium 4.2 Chloride 103 Carbon Dioxide 33 H BUN 40 H Creatinine 1.27 H Glucose 68 L Calcium 8.5 L Magnesium 2.2 - Imaging and Cardiology Echo: report reviewed - EKG Interpretation EKG results cardiology: personally reviewed, other (afib) Consult Discharge Plan - Plan Referrals: Shirley Sebastian, SENIOR SCIENCE CONSULTANT [Primary Care Provider] - <Bri Vogel - Last Filed: 02/26/17 18:31> Date of Encounter: 02/26/17 Assessment and Plan Discussion w patient/family: I examined this patient and my medical decision-making was reviewed with the Resident Physician. I agree with the documented findings, disposition and treatment plan. Mr. Lang's echo returned abnormal, EF 30-35%. We do not have a recent echocardiogram to compare this with since some of his care has been at [facility]. At this time, however he has developed a large abdominal hematoma and pursuing an invasive heart catheterization would be contraindicated. Recommend medical management at this time. He should follow-up as an outpatient to consider heart catheterization after hematoma resolves. Recommend continuing low-dose aspirin if primary team agrees. Otherwise, he will continue statin, beta aidan, diuretic. Consider the addition of low-dose ACEI with careful watch on renal function. Also of note, he did develop newly discovered atrial fibrillation found on presentation now with normal heart rates. Recommend continuing beta aidan. Anticoagulation can be discussed as an outpatient once hematoma resolves. The plan of care was discussed with the patient. He expressed understanding and agreement. We will sign off. Please call with questions. Objective Vital Signs, Last 4 Hours Temp Pulse Resp BP Pulse Ox 02/26/17 15:51 97.6 F 68 15 112/65 96 Results 02/26/17 05:23 02/26/17 05:23 Lab Results 02/26/17 02/26/17 02/26/17 05:23 05:23 05:23 WBC 6.7 Hgb 9.8 L D Hct 31.2 L Plt Count 156 APTT 28.8 Sodium 141 Potassium 4.2 Chloride 103 Carbon Dioxide 33 H BUN 40 H Creatinine 1.27 H Glucose 68 L Calcium 8.5 L Magnesium 2.2
[2017-02-26] MEDS: Furosemide 20 MG TABLET PO SCH (10:48)
[2017-02-26] MEDS: *HR* Morphine 2 MG/ML SYRINGE IVP PRN ×2 (14:04→22:12)
--- NOTE | 2017-02-26 14:52 | Internal Med Progress Note ---
Date of Encounter: 02/26/17 Time of Encounter: 14:05 - Subjective Interval history: Patient seen and examined with family present at bedside. Pt reports of severe abd pain however has not been asking for his pain medications. He is noted to have distended abd at the site of the hematoma. has positive bowel sounds and reports of tolerating clear liquid diet well. Will obtain repeat CT abd/pelvis and continue to closely monitor Assessment/Plan: 1. Acute cholecystitis surgery evaluation appreciated, no acute surgical intervention recommended at this time continue empiric IV abx pain control supportive care 2. NSTEMI/Afib appears to be no onset Afib cardiology evaluation appreciated discontinued heparin gtt due to hematoma medical therapy recommended, BB, statin, continue Asa and plavix pt will need group home AC, outpatient follow up recommended 3. CHF ECHO: EF 30-35%, Global LV systolic dysfunction, mild RV hypokinesis, mod dilated RA, mild MR, TR, and pulmonary hypertension continue diuretic therapy will continue to monitor 4. ABD wall hematoma surgery on board holding anticoagulation at this time Drop in H&H noted, will continue to closely monitor and transfuse as needed 5. DM continue sliding scale insulin algorithm (increased to medium dose algorithm) monitor FS and BG ADA diet 6. HTN BP within acceptable range continue home meds 7. HLD continue statin therapy 8. EVER likely secondary to diuretic therapy will closely monitor - Constitutional Vitals: Temp Pulse Resp BP Pulse Ox 97.4 F L 84 18 108/77 97 02/26/17 11:30 02/26/17 11:30 02/26/17 11:30 02/26/17 11:30 02/26/17 11:30 General appearance: Present: A&O X 3, no acute distress, answers questions appropriately - Head Head exam: Present: atraumatic, normocephalic - Respiratory Respiratory exam: Present: CTAB. Absent: accessory muscle use, rales, rhonchi, wheezes - Cardiovascular Cardiovascular exam: Present: irregular rhythm, +S1, +S2 - GI/Abdominal GI/Abdominal exam: Present: normal bowel sounds, tenderness (diffuse abd wall hematoma ), no peritoneal signs - Extremities Exam Extremities exam: Present: warm, radial pulses palpable and symmetrical. Absent : calf tenderness - Neurological Exam Neurological exam: Present: alert, oriented X3 - Psychiatric Psychiatric exam: Present: normal affect, normal mood Internal Medicine: Result - Labs CBC & Chem 7: 02/26/17 05:23 02/26/17 05:23 Labs: Short CBC 02/26/17 Range/Units 05:23 WBC 6.7 (4.3-11.1) K/mcL Hgb 9.8 L D (12.9-16.9) g/dL Hct 31.2 L (37.5-50.1) % Plt Count 156 (140-400) K/mcL Neutrophils # 4.3 (1.6-8.9) K/mcL BMP 02/26/17 05:23 Sodium 141 Potassium 4.2 Chloride 103 Carbon Dioxide 33 H BUN 40 H Creatinine 1.27 H Glucose 68 L Calcium 8.5 L - ABG Interpretation ABG results: PT/INR, D-dimer PT 13.6 Seconds (9.4-12.1) H 02/24/17 14:26 - Impressions Impressions Chest/Abdomen X-ray 02/25/17 00:05 IMPRESSION: Tiny right pleural effusion. No bowel obstruction or free air. D/ / 02/25/2017 07:15:00 Duncan Olivia MD / [facility] Interpreting Provider: Duncan Olivia MD Echocardiogram 02/25/17 07:30 Impressions: LVEF 30-35%. Global left ventricular systolic dysfunction. Indeterminate diastolic function. Normal right ventricula size. Mild right ventricular hypokinesis. Moderately dilated left atrium. Mild mitral regurgitation. Mild tricuspid regurgitation. Mild pulmonary hypertension. Left Ventricular Wall Motion: Rest Echo Findings The apex, apical inferior, mid inferior, basal inferior, apical anterior, mid anterior, basal anterior, apical septal, mid inferior septal, basal inferior septal, apical lateral, mid anterior lateral, basal anterior lateral, mid anterior septal, mid inferior lateral, basal anterior septal and basal inferior lateral bains were hypokinetic. Findings: Study Quality * Technically adequate exam. ECG Findings * Atrial fibrillation. Left Ventricle * LVEF 30-35%. * Global left ventricular systolic dysfunction. * Indeterminate diastolic function. Right Ventricle * Normal right ventricula size. Mild right ventricular hypokinesis. Left Atrium * Moderately dilated left atrium. Right Atrium * Moderately dilated right atrium. Interatrial Septum * Interatrial septum not well evaluated. Aortic Valve * No aortic regurgitation. * No aortic stenosis. * Trileaflet aortic valve. Mitral Valve * Normal mitral valve structure. * Mild mitral regurgitation. * No mitral stenosis. Tricuspid Valve * Normal tricuspid valve structure. * Mild tricuspid regurgitation. * Mild pulmonary hypertension. Pulmonic Valve * Normal pulmonic valve structure and function. * No pulmonic regurgitation. Aorta * Normally sized aortic root. Pericardium * The pericardium appears normal. IVC * Normal IVC dimensions and inspiratory collapse. Pulmonary Artery * Normal visualized portions of the main pulmonary artery. Consult Discharge Plan - Plan Referrals: Shirley Sebastian, SENIOR TECHNICAL PROGRAM MANAGER [Primary Care Provider] -
[2017-02-26] MEDS: *HR* HYDROcodone/Acet 5/325 mg TABLET PO PRN (18:41)
[2017-02-26] MEDS: Benzonatate 100 MG CAPSULE PO PRN (20:13)
[2017-02-27] MEDS: Piperacillin/Tazobactam 3.375 GM in D5% in Water 50 ML IVPB SCH ×4 (00:14→23:58)
[2017-02-27 06:03] LABS: Basophils % 0.3 %; Eosinophils # 0.2 K/mcL (0.0-0.6); Eosinophils % 2.9 %; Hematocrit 29.6 % (37.5-50.1); Hemoglobin 9.2 g/dL (12.9-16.9); Immature Granulocytes % 0.3 % (0-4); Lymphocytes # 1.9 K/mcL (0.6-4.6); Lymphocytes % 27.5 %; Mean Corpuscular HGB Conc 31.1 g/dL (31.6-35.5); Mean Corpuscular Hemoglobin 27.5 pg (28.0-33.3); Mean Corpuscular Volume 88.6 fL (83.0-100.0); Mean Platelet Volume 13.3 fL (9.4-12.4); Monocytes # 0.6 K/mcL (0.0-1.3); Monocytes % 8.6 %; Neutrophils # 4.2 K/mcL (1.6-8.9); Platelet Count 157 K/mcL (140-400); Red Blood Count 3.34 M/mcL (4.19-5.50); Red Cell Distribution Width 12.8 % (11.5-14.5); Segmented Neutrophils % 60.4 %
[2017-02-27 06:14] LABS: BUN/Creatinine Ratio 25 (6-26); Calcium 8.3 mg/dL (8.6-10.8); Carbon Dioxide 30 mEq/L (19-29); Chloride 104 mEq/L (98-109); Glucose 125 mg/dL (70-99); Osmolality,Calculated 293 (280-300); Potassium 4.5 mEq/L (3.5-4.5); Sodium 138 mEq/L (136-145); eGFR For African Americans > 60 (> 60); eGFR For Non-African Americans > 60 (> 60)
[2017-02-27 06:15] LABS: Blood Urea Nitrogen 29 mg/dL (8-26)
[2017-02-27] MEDS: *HR* HYDROcodone/Acet 5/325 mg TABLET PO PRN ×3 (06:18→20:56)
[2017-02-27] MEDS: Insulin LISPRO 300 UNITS/3 ML VIAL SQ SCH ×4 (07:31→20:50)
[2017-02-27] MEDS: Aspirin 81 MG TAB.CHEW PO SCH (07:40)
[2017-02-27] MEDS: Furosemide 20 MG TABLET PO SCH (07:40)
[2017-02-27] MEDS: Metoprolol XL (24 HR) Succ 25 MG TAB.ER.24H PO SCH (07:40)
[2017-02-27] MEDS: *HR* Morphine 2 MG/ML SYRINGE IVP PRN ×2 (07:41→15:01)
--- NOTE | 2017-02-27 09:56 | Internal Med Progress Note ---
Date of Encounter: 02/27/17 Time of Encounter: 08:50 - Subjective Interval history: Patient seen and examined at bedside. Resting in bed, noted to have worsening bruising on lateral left abd wall extending to the back. Reports worsening discomfort. CT abd/pelvis reported slight increase in size of left sided rectus hematoma. Pain controlled with pain medications Assessment/Plan: 1. Acute cholecystitis surgery evaluation appreciated, no acute surgical intervention recommended at this time continue empiric IV abx pain control supportive care will advance diet as tolerated 2. NSTEMI/Afib appears to be no onset Afib cardiology evaluation appreciated medical therapy recommended, BB, statin, continue Asa and plavix pt will need alf AC, outpatient follow up recommended 3. CHF ECHO: EF 30-35%, Global LV systolic dysfunction, mild RV hypokinesis, mod dilated RA, mild MR, TR, and pulmonary hypertension continue diuretic therapy will continue to monitor 4. ABD wall hematoma holding anticoagulation at this time Drop in H&H noted, will continue to closely monitor and transfuse as needed surgery follow up requested 5. DM continue sliding scale insulin algorithm (increased to medium dose algorithm) monitor FS and BG ADA diet 6. HTN BP within acceptable range continue home meds 7. HLD continue statin therapy 8. EVER resolved will continue to closely monitor renal function - Constitutional Vitals: Temp Pulse Resp BP Pulse Ox 97.8 F 82 18 142/97 97 02/27/17 06:56 02/27/17 06:56 02/27/17 06:56 02/27/17 06:56 02/27/17 06:56 General appearance: Present: A&O X 3, no acute distress, answers questions appropriately - Head Head exam: Present: atraumatic, normocephalic - Eye Eye exam: Present: conjuntiva pink, sclera anicteric - Respiratory Respiratory exam: Present: CTAB. Absent: accessory muscle use, rales, rhonchi, wheezes - Cardiovascular Cardiovascular exam: Present: irregular rhythm, +S1, +S2 - GI/Abdominal GI/Abdominal exam: Present: normal bowel sounds, soft, tenderness (left abd wall tenderness, brusing on lateral left abd wall extending to lower back), no peritoneal signs - Extremities Exam Extremities exam: Present: pedal edema, warm, radial pulses palpable and symmetrical. Absent: calf tenderness - Neurological Exam Neurological exam: Present: alert, oriented X3 - Psychiatric Psychiatric exam: Present: normal affect, normal mood Internal Medicine: Result - Labs CBC & Chem 7: 02/27/17 05:36 02/27/17 05:36 Labs: Short CBC 02/27/17 Range/Units 05:36 WBC 6.9 (4.3-11.1) K/mcL Hgb 9.2 L (12.9-16.9) g/dL Hct 29.6 L (37.5-50.1) % Plt Count 157 (140-400) K/mcL Neutrophils # 4.2 (1.6-8.9) K/mcL BMP 02/27/17 05:36 Sodium 138 Potassium 4.5 Chloride 104 Carbon Dioxide 30 H BUN 29 H D Creatinine 1.15 Glucose 125 H Calcium 8.3 L - ABG Interpretation ABG results: PT/INR, D-dimer PT 13.6 Seconds (9.4-12.1) H 02/24/17 14:26 - Impressions Impressions Chest/Abdomen X-ray 02/25/17 00:05 IMPRESSION: Tiny right pleural effusion. No bowel obstruction or free air. D/ / 02/25/2017 07:15:00 Duncan Olivia MD / [email or web address] Interpreting Provider: Duncan Olivia MD Abdomen/Pelvis CT 02/26/17 13:53 IMPRESSION: Slight increase in size of left-sided rectus hematoma Cholelithiasis D/ / Morris Whitten MD / Morris Whitten MD Interpreting Provider: Morris Whitten MD Consult Discharge Plan - Plan Referrals: Shirley Sebastian, CONVENTIONAL MACHINIST [Primary Care Provider] -
--- NOTE | 2017-02-27 11:53 | Event Note ---
Date of Encounter: 02/27/17 Time of Encounter: 11:50 Suregry was called back to re-evaluate left abdominal hematoma. Noted very small interval increase in the size of his left abdominal hematoma. There is no evidence of compartment syndrome. There is echymosis present in the left distal flank area. He states his abdominal discomfort has neither worsened nor improved. Ecchymosis can be expected to worsen as the hematoma resolves. Pt is reminded if he develops worsening abdominal discomfort or symptoms of compartment syndrome he should be reevaluated. There remains no surgical intervention indicated at this time and there is no need for outpatient surgical follow-up unless clinical course changes.
[2017-02-27] MEDS: Benzonatate 100 MG CAPSULE PO PRN ×2 (12:39→20:49)
[2017-02-28] MEDS ORDERED: Ciprofloxacin OPTH Soln 2.5 ML BOTTLE LEFT EYE SCH (04:00)
[2017-02-28] MEDS: Ciprofloxacin OPTH Soln 2.5 ML BOTTLE RIGHT EYE SCH ×3 (04:00→12:49)
[2017-02-28] MEDS: *HR* Morphine 2 MG/ML SYRINGE IVP PRN (04:03)
[2017-02-28 06:09] LABS: Basophils % 0.2 %; Eosinophils # 0.2 K/mcL (0.0-0.6); Hematocrit 28.8 % (37.5-50.1); Hemoglobin 8.9 g/dL (12.9-16.9); Immature Granulocytes % 0.5 % (0-4); Lymphocytes # 1.3 K/mcL (0.6-4.6); Lymphocytes % 14.7 %; Mean Corpuscular HGB Conc 30.9 g/dL (31.6-35.5); Mean Corpuscular Hemoglobin 27.3 pg (28.0-33.3); Mean Corpuscular Volume 88.3 fL (83.0-100.0); Mean Platelet Volume 12.8 fL (9.4-12.4); Monocytes # 0.8 K/mcL (0.0-1.3); Monocytes % 8.6 %; Neutrophils # 6.6 K/mcL (1.6-8.9); Platelet Count 141 K/mcL (140-400); Red Blood Count 3.26 M/mcL (4.19-5.50)
[2017-02-28 06:24] LABS: BUN/Creatinine Ratio 25 (6-26); Blood Urea Nitrogen 32 mg/dL (8-26); Calcium 8.4 mg/dL (8.6-10.8); Carbon Dioxide 29 mEq/L (19-29); Chloride 104 mEq/L (98-109); Glucose 91 mg/dL (70-99); Osmolality,Calculated 292 (280-300); Phosphorous 3.1 mg/dL (2.3-4.7); Potassium 4.9 mEq/L (3.5-4.5); Sodium 138 mEq/L (136-145); eGFR For African Americans > 60 (> 60); eGFR For Non-African Americans 55 (> 60)
[2017-02-28] MEDS: Insulin LISPRO 300 UNITS/3 ML VIAL SQ SCH ×2 (08:48→12:49)
[2017-02-28] MEDS: Furosemide 20 MG TABLET PO SCH (09:09)
[2017-02-28] MEDS: Aspirin 81 MG TAB.CHEW PO SCH (09:09)
[2017-02-28] MEDS: *HR* HYDROcodone/Acet 5/325 mg TABLET PO PRN (09:09)
[2017-02-28] MEDS: Benzonatate 100 MG CAPSULE PO PRN (09:09)
[2017-02-28] MEDS: Metoprolol XL (24 HR) Succ 25 MG TAB.ER.24H PO SCH (09:09)
[2017-02-28] MEDS: Piperacillin/Tazobactam 3.375 GM in D5% in Water 50 ML IVPB SCH (09:13)
[2017-02-28 11:26] VITALS: BP 121/56
--- NOTE | 2017-02-28 14:17 | Discharge Summary ---
Date of Encounter: 02/28/17 Time of Encounter: 12:40 - Discharge Diagnosis (1) Acute cholecystitis Priority: Primary Status: Acute (2) DM type 2 (diabetes mellitus, type 2) Priority: Secondary Status: Chronic Qualifiers: Diabetes mellitus complication status: with circulatory complication Diabetes mellitus complication detail: with peripheral angiopathy without gangrene Diabetes mellitus shelter insulin use: without shelter use Qualified Code(s): E11.51 - Type 2 diabetes mellitus with diabetic peripheral angiopathy without gangrene (3) Hypertension Priority: Secondary Status: Chronic Qualifiers: Hypertension type: essential hypertension Qualified Code(s): I10 - Essential (primary) hypertension (4) Hyperlipidemia Priority: Secondary Status: Chronic Qualifiers: Hyperlipidemia type: unspecified Qualified Code(s): E78.5 - Hyperlipidemia , unspecified (5) CHF (congestive heart failure) Priority: Secondary Status: Chronic Qualifiers: Congestive heart failure type: systolic Congestive heart failure chronicity : acute on chronic Qualified Code(s): I50.23 - Acute on chronic systolic ( congestive) heart failure (6) Abdominal wall hematoma Priority: Secondary Status: Acute Qualifiers: Encounter type: initial encounter Qualified Code(s): S30.1XXA - Contusion of abdominal wall, initial encounter (7) Elevated troponin Priority: Primary Status: Acute (8) CAD (coronary artery disease) Priority: Secondary Status: Chronic Qualifiers: Coronary Disease-Associated Artery/Lesion type: unspecified vessel or lesion type [place] vs. transplanted heart: [place] heart Associated angina: without angina Qualified Code(s): I25.10 - Atherosclerotic heart disease of [place] coronary artery without angina pectoris (9) New onset atrial fibrillation Priority: Primary Status: Acute - Discharge Medications Prescriptions: HYDROcodone/Acet 5/325 mg [[place] 5-325 mg] 1 tab PO Q6HR PRN #20 tablet PRN Reason: Moderate Pain Aspirin 81 mg PO DAILY #30 tab.chew Atorvastatin [Lipitor] 20 mg PO HS #30 tablet Benzonatate [Tessalon] 100 mg PO TID PRN #30 capsule PRN Reason: Cough Furosemide [Lasix] 20 mg PO DAILY #30 tablet levoFLOXacin [Levaquin] 500 mg PO DAILY #3 tablet Metoprolol XL (24 HR) Succ [Toprol Xl] 12.5 mg PO DAILY #30 tab.er.24h Home Medications: Glimepiride [Amaryl] 4 mg PO DAILY 11/03/15 [History] Aspirin 81 mg PO DAILY #30 tab.chew 02/28/17 [Rx] Atorvastatin [Lipitor] 20 mg PO HS #30 tablet 02/28/17 [Rx] Benzonatate [Tessalon] 100 mg PO TID PRN #30 capsule 02/28/17 [Rx] Furosemide [Lasix] 20 mg PO DAILY #30 tablet 02/28/17 [Rx] HYDROcodone/Acet 5/325 mg [[place] 5-325 mg] 1 tab PO Q6HR PRN #20 tablet [Rx] Metoprolol XL (24 HR) Succ [Toprol Xl] 12.5 mg PO DAILY #30 tab.er.24h 02/28/17 [Rx] levoFLOXacin [Levaquin] 500 mg PO DAILY #3 tablet 02/28/17 [Rx] Allergies/Adverse Reactions: 3 Allergy/AdvReac Type Severity Reaction Status Date / Time No Known Allergies Allergy Verified 02/23/17 16:02 Procedures/tests Complete & Pending: Procedures Performed prior 72 hours Category Date Time Status CT abd pelvis wo no iv no oral [CT] Stat Cat Scan 02/26/17 13:53 Completed Date of admission: 02/24/17 13:40 Primary care physician: Shirley Sebastian CNP Consults: 02/24/17 14:09 Consult to Cardiology [CONS] Routine Comment: Consulting Provider: [facility] Reason for Consult: new onset Afib Time Notified: 14:10 Call Completed: Yes 02/25/17 05:58 Consult to Surgery [CONS] Routine Consulting Provider: [facility] Reason for Consult: CT Findings compatible with hematoma in the left abdominal rectus muscle. In addtition to Multiple gallstones and questionable pericholecystic edema with cholecystitis. Call Completed: No 02/26/17 11:51 Consult to Extruding Department Supervisor [CONS] Routine Reason for SW Consult: readmission Discharging clinician: Angela Chacon Anticipated date of discharge: 02/28/17 - Patient Status Disposition: Home, Self-Care Condition: Good Functional capacity at discharge: independent ambulation Overall status at discharge: patient is back to baseline - Discharge Instructions Follow Up With: Shirley Sebastian CNP [Primary Care Provider] - 03/18/17 12:30 pm Additional Instructions: Please follow up with your primary care physician within one week after your discharge from the hospital Please follow up with cardiology within one week after your discharge from the hospital please seek medical help immediately if there is worsening of abd pain or any acute bleeding. Your home medications have been changed as follows: 1. Lisinopril/Hydrochlorothiazide has been discontinued 2. Torsemide has been discontinued 3. Furosemide 20mg once a day has been added 4. Metoprolol 12.5mg once a day has been added 5. Atorvastatin 20mg at bedtime has been added 6. Aspirin 81mg once a day has been added 7. Discontinue home dose of potassium supplement, as you were noted to have mildly elevated potassium level Levaquin 500mg once a day for 4 more days continue all other home medications as prescribed by your primary care physician. - Diet and Activity Activity: resume usual activities as tolerated Diet: diabetic diet, low fat, low cholesterol, low salt diet Hospital course: Mr. Lang is a 81 year old male with PMH of CAD, DM, HTN, HLD who was admitted for elevated TNI, new onset Afib, CHF, and EVER. He was started on heparin gtt however he developed an abd wall hematoma and CT findings were also consistent with acute cholecystitis. His heparin gtt was discontinued due to the hematoma and no surgical intervention for acute cholecystitis was recommended due to poor cardiac function. Cardiology recommended medial optimization at this time and close outpatient follow up. His home meds were adjusted as per odd shoe examiner's recommendations. His abd wall hematoma persists and surgery has been following. Pt has not clinical signs of compartment syndrome and pain is controlled with oral pain medications. He has been on abx for acute cholecystitis and has been tolerating PO intake well. At this time he is hemodynamically stable and will be discharged to home with follow up with his PCP and cardiology. Pt's discharge planing was discussed in great detail with the patient and family, they all agree with the discharge care and plan. They are requesting a new primary care physician. - Time Spent with Patient Total time spent providing and/or coordinating discharge services: Greater than 30 minutes - Constitutional Vitals: Temp Pulse Resp BP Pulse Ox 98.0 F 50 16 121/56 96 02/28/17 11:25 02/28/17 11:25 02/28/17 11:25 02/28/17 11:25 02/28/17 11:25 General appearance: Present: A&O X 3, no acute distress, answers questions appropriately - Head Head exam: Present: atraumatic, normocephalic - Respiratory Respiratory exam: Present: CTAB. Absent: respiratory distress, wheezes - Cardiovascular Cardiovascular exam: Present: RRR, +S1, +S2. Absent: diastolic murmur, gallop, rubs, systolic murmur - GI/Abdominal GI/Abdominal exam: Present: normal bowel sounds, soft, no peritoneal signs. Absent: tenderness Additional comments: left abd wall hematoma, diffuse bruising noted extending to left flank area - Extremities Exam Extremities exam: Present: warm, radial pulses palpable and symmetrical. Absent : calf tenderness - Neurological Exam Neurological exam: Present: alert, oriented X3 - Psychiatric Psychiatric exam: Present: normal affect, normal mood
== END 2017-02-28 15:23 | disposition home or self-care (01) | DRG 308 ==
LOC: 3BNU → SUATTDRO 13:40
PROVIDERS: ADMIT Internal Medicine; ATTEND Internal Medicine

== ENCOUNTER 2018-04-14 16:54 | Inpatient (IN) ==
[2018-04-14] MEDS ORDERED: *HR* Heparin 5,000 UNIT/ML VIAL IVP ONE (20:16)
[2018-04-14] MEDS ORDERED: *HR* Heparin 5,000 UNIT/ML VIAL IVP PRN ×2 (20:16)
[2018-04-14] MEDS ORDERED: *HR* HYDROcodone/Acet 5/325 mg TABLET PO PRN (20:19)
[2018-04-14] MEDS ORDERED: Nitroglycerin 0.4 MG TAB.SUBL SL PRN (20:19)
[2018-04-14] MEDS ORDERED: Acetaminophen 325 MG TABLET PO PRN (20:22)
[2018-04-14] MEDS ORDERED: Naloxone 0.4 MG/ML INJ IVP PRN (20:22)
[2018-04-14] MEDS ORDERED: Heparin 25,000 UNIT/500 ML D5W 25,000 UNIT/500 ML BAG IVC SCH (20:30)
[2018-04-14] MEDS ORDERED: *HR* Dextrose 50 % in Water (Syg) 50 ML SYRINGE IVP PRN (20:42)
[2018-04-14] MEDS ORDERED: Dextrose Gel 15 GM/37.5 ML TUBE PO PRN ×2 (20:42)
[2018-04-14] MEDS ORDERED: D5% in Water 1,000 ML IVC PRN (20:42)
[2018-04-14 20:53] LABS: Hematocrit 37.1 % (37.5-50.1); Hemoglobin 11.9 g/dL (12.9-16.9); Mean Corpuscular HGB Conc 32.1 g/dL (31.6-35.5); Mean Corpuscular Hemoglobin 28.3 pg (28.0-33.3); Mean Corpuscular Volume 88.3 fL (83.0-100.0); Mean Platelet Volume 13.2 fL (9.4-12.4); Platelet Count 121 K/mcL (140-400); Red Cell Distribution Width 13.5 % (11.5-14.5)
[2018-04-14 21:01] LABS: INR 1.1; Prothrombin Time 12.3 Seconds (9.4-12.1)
--- NOTE | 2018-04-14 21:03 | Internal Med History&Physical ---
Date of Encounter: 04/14/18 Time of Encounter: 20:59 Internal Medicine - H&P: HPI Admitted From: Home Plans for Post Hospital Care: Home History of present illness: Mr. Lang is a 82 year old male who came to [facility] emergency room stating she had onset of dyspnea and discomfort in his chest and interscapular area the morning of April 12 while doing usual activities. It waxed and waned the entire day but never resolved. He came to emergency room the morning of April 13 and was diagnosed with heart failure. He was given Lasix and di scharged home but returned to emergency room a few hours later because of feeling unimproved. He was admitted on 04/13 to [facility]. Repeat troponin level jaime from < 0.03 on admission to 0.19 then 0.30. He remained pain-free. Pt had 4 vessel CABG in 2011. Never had any cardiac workup since then. He also has Hx of CHF and experienced fluid overload after one provider prescribed prednisone for him. Prednisone was dc'ed and lasix dose was increased. His BNP on admission was 2000, higher than his baseline. NSTEMI was suspected. He was agreeable to transfer to [facility] for further evaluation. Upon arrival , his vital signs were stable, He denies chest pain but does endorse mild sob and leg swelling. He was placed on heparin gtt and cardiology was consulted. Pt will be admitted for further evaluation. Past Med Surg Social Fam HX - Past Medical History Medical history: arthritis, atrial fibrillation, CHF, COPD, coronary artery disease, diabetes, hyperlipidemia, hypertension, myocardial infarction, valvular heart disease Additional medical history: gallstones, cholecyctitis Psychiatric history: no psych history - Past Surgical History Surgical History: appendectomy, coronary bypass (CABG), herniorrhaphy, LE vascular intervention, orthopedic, other Additional surgical history: left hand surgery. left great toe amputation. right great toe partial amputation, RT GROIN FILTER - Social History Smoking Status: Never smoker Smokeless Tobacco Status: No Alcohol use: none Drug use: none - Family History Father Living Status: Hx Family Cardiac Disorders: Yes Mother Living Status: Internal Medicine - H&P: Meds Glimepiride [Amaryl] 4 mg PO DAILY 11/03/15 [History] Aspirin 81 mg PO DAILY #30 tab.chew 02/28/17 [Rx] Atorvastatin [Lipitor] 20 mg PO HS #30 tablet 02/28/17 [Rx] Furosemide [Lasix] 20 mg PO DAILY #30 tablet 02/28/17 [Rx] HYDROcodone/Acet 5/325 mg [[place] 5-325 mg] 1 tab PO Q6HR PRN #20 tablet 02/28/17 [Rx] Metoprolol XL (24 HR) Succ [Toprol Xl] 12.5 mg PO DAILY #30 tab.er.24h 02/28/17 [Rx] Doxycycline 100 mg PO BID #14 capsule 04/02/18 [Rx] Nystatin/Triamcinolone CRM [Mycolog] 1 appl TP BID #1 tube 04/02/18 [Rx] Albuterol Sulfate [Albuterol Inhaler] 2 puff IH Q6HR PRN #1 hfa.aer.ad 04/13/18 [Rx] Amoxicillin/Clavulanate [Augmentin] 875 mg PO BIDWM #20 tablet 04/13/18 [Rx] Brompheniramine/Pseudoephed/Dm [Bromfed Dm Cough Syrup] 5 ml PO Q4-6H PRN #120 syrup 04/13/18 [Rx] predniSONE [PredniSONE] 40 mg PO DAILY #10 tablet 04/13/18 [Rx] Furosemide [Lasix] 40 mg PO BID 04/14/18 [History] Glipizide-Metformin 2.5-500 mg 500 mg PO BID 04/14/18 [History] Allergy/AdvReac Type Severity Reaction Status Date / Time No Known Allergies Allergy Verified 04/13/18 05:42 All Systems PM: A 10-system review of systems was performed and is negative for pertinent findings except as documented above in the HPI. Review of systems: REVIEW OF SYSTEMS: CONSTITUTIONAL: No weight loss, fever, chills, weakness or fatigue. HEENT: Eyes: No visual loss, blurred vision, double vision or yellow sclerae. Ears, Nose, Throat: No hearing loss, sneezing, congestion, runny nose or sore throat. SKIN: No rash or itching. CARDIOVASCULAR: see HPI. RESPIRATORY: see HPI. GASTROINTESTINAL: No anorexia, nausea, vomiting or diarrhea. No abdominal pain or blood. GENITOURINARY: No dysuria, urgency, or frequency. NEUROLOGICAL: No headache, dizziness, syncope, paralysis, ataxia, numbness or tingling in the extremities. No change in bowel or bladder control. MUSCULOSKELETAL: No muscle, back pain, joint pain or stiffness. HEMATOLOGIC: No anemia, bleeding or bruising. LYMPHATICS: No enlarged nodes. No history of splenectomy. PSYCHIATRIC: No history of depression or anxiety. ENDOCRINOLOGIC: No reports of sweating, cold or heat intolerance. No polyuria or polydipsia. - Constitutional Vitals: Temp Pulse Resp BP Pulse Ox 97.9 F 75 17 136/70 97 04/14/18 19:41 04/14/18 19:41 04/14/18 19:41 04/14/18 19:41 04/14/18 19:41 General appearance: Present: cooperative, A&O X 3, answers questions appropriately Exam: PHYSICAL EXAMINATION: GENERAL APPEARANCE: The patient is alert, oriented and in no acute distress. HEENT: Head is normocephalic. The sinuses are nontender. Pupils are equal and reactive. The nares are patent. Oropharynx clear without lesions. NECK: Supple without lymphadenopathy. HEART: Regular rate and rhythm. LUNGS: No crackles or wheezes are heard. ABDOMEN: Soft, nontender, nondistended with good bowel sounds heard. Inguinal area is normal. EXTREMITIES: 1+ pitting edema on BLE. NEUROLOGICAL: Gross nonfocal. SKIN: Warm and dry without any rash. Internal Med - H&P Results - Labs CBC & Chem 7: 04/14/18 20:40 Labs: Short CBC 04/14/18 Range/Units 20:40 WBC 9.0 (4.3-11.1) K/mcL Hgb 11.9 L (12.9-16.9) g/dL Hct 37.1 L (37.5-50.1) % Plt Count 121 L (140-400) K/mcL - Assessment and plan (1) NSTEMI (non-ST elevated myocardial infarction) Current Visit: Yes Status: Acute Assessment and plan: 82-year-old male with past medical history of CAD status post CABG, hypertension, hyperlipidemia, diabetes, chronic atrial fibrillation, and a venous stasis presented with chest pressure/pain, with associated shortness of breath and leg edema. Labs showed elevated troponin, elevated BNP. EKG showed atrial fibrillation/aflutter, right bundle branch block, prior inferior wall infarct. She was transferred from [facility] to here for further management. - Patient did experienced CHF exacerbation recently, the pattern will troponin indicated he likely had a NC, although this is truely an vessel obstructive or demand ischemia/ trop leak due to CHF, is not clear. - Talked to cardiology, will order echo, start heparin gtt. No need for Plavix now. continue home asa, statin, and BB. - Continue to control BP and treat CHF. - Cardiology following. (2) CAD (coronary artery disease) Current Visit: No Status: Chronic Assessment and plan: same as above. Qualifiers: Coronary Disease-Associated Artery/Lesion type: unspecified vessel or lesion type [place] vs. transplanted heart: [place] heart Associated angina: without angina Qualified Code(s): I25.10 - Atherosclerotic heart disease of [place] coronary artery without angina pectoris (3) CHF (congestive heart failure) Current Visit: No Status: Chronic Assessment and plan: Recent ECHO 06/2017 showed EF 50% mild systolic and indeterminate diastolic dysfunction. BNP at [facility] 2000, higher than baseline. will repeat ECHO. Increase lasix to 40 mg BID. continue control BP. Qualifiers: Heart failure type: diastolic Heart failure chronicity: acute on chronic Qualified Code(s): I50.33 - Acute on chronic diastolic (congestive) heart failure (4) DM type 2 (diabetes mellitus, type 2) Current Visit: No Status: Chronic Assessment and plan: started on insulin sliding scale. Qualifiers: Diabetes mellitus shelter insulin use: without intermediate accountant use Diabetes mellitus complication status: with circulatory complication Diabetes mellitus complication detail: with peripheral angiopathy without gangrene Qualified Code(s): E11.51 - Type 2 diabetes mellitus with diabetic peripheral angiopathy without gangrene (5) Hypertension Current Visit: No Status: Chronic Assessment and plan: BP well controlled, continue home meds. Qualifiers: Hypertension type: essential hypertension Qualified Code(s): I10 - Essential (primary) hypertension (6) Hyperlipidemia Current Visit: No Status: Chronic Assessment and plan: continue home meds. Qualifiers: Hyperlipidemia type: unspecified Qualified Code(s): E78.5 - Hyperlipidemia, unspecified (7) Chronic stasis dermatitis Current Visit: No Status: Chronic Assessment and plan: monitor. (8) Atrial fibrillation Current Visit: No Status: Chronic Assessment and plan: rate control, not on AC, will discuss with pt about AC. Qualifiers: Atrial fibrillation type: paroxysmal Qualified Code(s): I48.0 - Paroxysmal atrial fibrillation (9) DVT prophylaxis Current Visit: Yes Status: Acute Assessment and plan: on Heparin gtt. - Time Spent With Patient Total time spent is greater than 50% in coordination of care (as documented) at patient's floor/unit and/or counseling patient: Greater than 35 minutes
[2018-04-14] MEDS: Insulin LISPRO 300 UNITS/3 ML VIAL SQ SCH (21:52)
[2018-04-15 03:44] LABS: Hematocrit 35.9 % (37.5-50.1); Hemoglobin 11.7 g/dL (12.9-16.9); Mean Corpuscular HGB Conc 32.6 g/dL (31.6-35.5); Mean Corpuscular Hemoglobin 28.4 pg (28.0-33.3); Mean Corpuscular Volume 87.1 fL (83.0-100.0); Mean Platelet Volume 13.5 fL (9.4-12.4); Platelet Count 112 K/mcL (140-400); Red Blood Count 4.12 M/mcL (4.19-5.50); Red Cell Distribution Width 13.3 % (11.5-14.5)
[2018-04-15 04:04] LABS: Alanine Aminotransferase 10 Units/L (7-52); Albumin 3.5 g/dL (3.5-5.7); Albumin/Globulin Ratio 1.7 (1.1-2.2); Alkaline Phosphatase 81 Units/L (34-104); Aspartate Amino Transferase 10 Units/L (13-39); BUN/Creatinine Ratio 30 (6-26); Blood Urea Nitrogen 33 mg/dL (8-23); Calcium 8.6 mg/dL (8.6-10.3); Carbon Dioxide 27 mEq/L (23-29); Chloride 103 mEq/L (98-107); Cholesterol 131 mg/dL (< 200); Globulin 2.1 g/dL (2.4-3.5); Glucose 153 mg/dL (70-105); HDL Cholesterol 44 mg/dL (40-59); LDL Cholesterol,Calculated 76 mg/dL (0-99); Magnesium 2.2 mg/dL (1.6-2.6); Osmolality,Calculated 294 (280-300); Potassium 3.9 mEq/L (3.5-5.1); Sodium 137 mEq/L (136-145); Total Protein 5.6 g/dL (6.4-8.9); Triglycerides 53 mg/dL (< 150); eGFR For Non-African Americans > 60 (> 60)
[2018-04-15] MEDS: Insulin LISPRO 300 UNITS/3 ML VIAL SQ SCH ×4 (07:44→20:07)
[2018-04-15] MEDS: Aspirin 81 MG TAB.CHEW PO SCH (07:50)
[2018-04-15] MEDS: Metoprolol XL (24 HR) Succ 25 MG TAB.ER.24H PO SCH (07:50)
[2018-04-15] MEDS ORDERED: Furosemide 40 MG TABLET PO SCH (08:00)
[2018-04-15] MEDS ORDERED: Furosemide 40 MG/4 ML VIAL IVP ONE (10:37)
--- NOTE | 2018-04-15 10:45 | Cardiology Consult Note ---
<Nadeen Persaud - Last Filed: 04/15/18 10:41> Date of Encounter: 04/15/18 Time of Encounter: 09:00 Assessment and Plan (1) CHF (congestive heart failure) Current Visit: No Status: Chronic Per cardiology: -Known history of cardiomyopathy LVEF 30-35% 2016, since recovered. -Presented to [facility] with shortness of breath, chest discomfort -Initial chest x-ray with pulmonary edema. -Reports dietary indiscretions over the holidays -Remains volume overloaded on exam, 2+ pitting edema lower extremities. -Will start IV lasix 40mg BID, recommend diuresis until euvolemic. -Strict i/os, fluid restriction, daily weights. CHF education reinforced with pateint. Encouraged dietary compliance. Qualifiers: Heart failure type: combined systolic and diastolic Heart failure chronicity: acute on chronic Qualified Code(s): I50.43 - Acute on chronic combined systolic (congestive) and diastolic (congestive) heart failure (2) Elevated troponin Current Visit: No Status: Acute Per cardiology: -Troponins negative, 0.19, 0.3, 0.3, 0.17, 0.15 in the setting of CHF. -ECG with no acute ischemic changes. -Reports chest discomfort relieved after IV lasix, different from previous angina. -TTE with LVEF preserved, no wall motion abnormalities. -Known history of CAD s/p CABG 2013. -ON asa, statin, BB, heparin drip. -Demand ischemia, no cardiac rehab consult warranted. -Consider outpatient stress test. -Will stop heparin drip and resume eliquis. (3) Atrial fibrillation Current Visit: No Status: Chronic Per cardiology: -Known chronic a.fib. -ON BB, HR controlled. -Takes eliquis at home for anticoagulation. -Continue BB. -Will resume eliquis. Qualifiers: Atrial fibrillation type: chronic Qualified Code(s): I48.2 - Chronic atrial fibrillation Discussion w patient/family: The assessment and plan as outlined above was discussed with the patient who expressed understanding and agreement. All questions were answered. Thank you for involving us in the care of your patient. Please call with any questions. Discussed and reviewed with History of Present Illness Consult date: 04/14/18 Requesting physician: Jina De Luna Consult reason: chest pain, elevated troponin Chief complaint: shortness of breath, chest discomfort History of present illness: Mr. Lang is a 82 year old male with a relevant past medical history of CHF, CAD s/p CABG, cardiomyopathy, a.fib, PAD, HTN, HLD, DM who presented to [facility] for shortness of breath and chest discomfort. Patient was noted to have CHF, was given IV lasix and then discharged home. Patient presented back to [facility] due to no resolution of symptoms. Patient reports shortness of breath, edema. Reports had chest discomfort that resolved after IV lasix. Denies current chest pain. Reports chest discomfort different from angina, however similar to previous CHF. Patient reports was visiting family in [place] for the holidays and was non-compliant with his diet and fluid restrictions. Past Med Surg Social Fam HX - Past Medical History Attestation: Yes The following information was validated with the patient. Source: patient, old records reviewed Medical history: arthritis, atrial fibrillation, cardiomyopathy, CHF, COPD, coronary artery disease, diabetes, hyperlipidemia, hypertension, myocardial infarction, valvular heart disease Additional medical history: gallstones, cholecyctitis Psychiatric history: no psych history - Past Surgical History Surgical History: appendectomy, coronary bypass (CABG), herniorrhaphy, LE vascular intervention, orthopedic, other Additional surgical history: left hand surgery. left great toe amputation. right great toe partial amputation, RT GROIN FILTER - Social History Smoking Status: Never smoker Smokeless Tobacco Status: No Alcohol use: none Drug use: none - Family History Father Living Status: Hx Family Cardiac Disorders: Yes Mother Living Status: Medications and Allergies Glimepiride [Amaryl] 4 mg PO DAILY 11/03/15 [History] Aspirin 81 mg PO DAILY #30 tab.chew 02/28/17 [Rx] Atorvastatin [Lipitor] 20 mg PO HS #30 tablet 02/28/17 [Rx] Furosemide [Lasix] 20 mg PO DAILY #30 tablet 02/28/17 [Rx] HYDROcodone/Acet 5/325 mg [[place] 5-325 mg] 1 tab PO Q6HR PRN #20 tablet 02/28/17 [Rx] Metoprolol XL (24 HR) Succ [Toprol Xl] 12.5 mg PO DAILY #30 tab.er.24h 02/28/17 [Rx] Doxycycline 100 mg PO BID #14 capsule 04/02/18 [Rx] Nystatin/Triamcinolone CRM [Mycolog] 1 appl TP BID #1 tube 04/02/18 [Rx] Albuterol Sulfate [Albuterol Inhaler] 2 puff IH Q6HR PRN #1 hfa.aer.ad 04/13/18 [Rx] Amoxicillin/Clavulanate [Augmentin] 875 mg PO BIDWM #20 tablet 04/13/18 [Rx] Brompheniramine/Pseudoephed/Dm [Bromfed Dm Cough Syrup] 5 ml PO Q4-6H PRN #120 syrup 04/13/18 [Rx] predniSONE [PredniSONE] 40 mg PO DAILY #10 tablet 04/13/18 [Rx] Furosemide [Lasix] 40 mg PO BID 04/14/18 [History] Glipizide-Metformin 2.5-500 mg 500 mg PO BID 04/14/18 [History] Allergy/AdvReac Type Severity Reaction Status Date / Time No Known Allergies Allergy Verified 04/13/18 05:42 All Systems Review: The remainder of the systems were reviewed and are negative - Cardiovascular Cardiovascular: as per HPI, chest pain at rest, dyspnea at rest, dyspnea on exertion, leg edema Physical Examination Vital Signs, Last 4 Hours Temp Pulse Resp BP Pulse Ox 04/15/18 07:13 98.0 F 72 18 145/85 96 General: Conversant, No Apparent Distress HEENT: Atraumatic, Normocephaly, Mucus Membranes Moist Neck: No JVD, Normal carotid pulses Cardiac: Normal S1 and S2, No Murmur, Other (Irregularly irregular) Lungs: Normal Breath Sounds, No Wheeze, Rales, Rhonchi Neuro: Alert and responsive, No focal deficits noted Abdomen: Soft, Non-Tender Skin: No rashes noted on visualized skin Musculoskeletal: No Chest Wall Tenderness Extremities: No Clubbing, No Cyanosis, Normal Pulses, Other (2+ bilateral lower extremity pitting edema noted. ) Results 04/15/18 03:17 04/15/18 03:17 Lab Results Impressions Echocardiogram 04/14/18 21:09 Impressions: LVEF 50%. Moderate left ventricular diastolic dysfunction. Mildly dilated right ventricle with normal right ventricular function. Mildly dilated left atrium. Mildly dilated right atrium. Mild aortic regurgitation. Mild-moderate mitral regurgitation. Mild-moderate tricuspid regurgitation. Mild pulmonary hypertension. Recommend LV constrast. Left Ventricular Wall Motion: Rest Echo Findings All wall segments showed normal motion. Findings: Study Quality * Technically sub-optimal due to poor echocardiographic windows. ECG Findings * Sinus rhythm with BBB. Left Ventricle * LVEF 50%. * Normal LV chamber size, wall thickness and systolic function. * Moderate left ventricular diastolic dysfunction. * Atypical septal motion consistent with bundle branch block. Right Ventricle * Mildly dilated right ventricle. * Normal right ventricular function. Left Atrium * Mildly dilated left atrium. Right Atrium * Mildly dilated right atrium. Interatrial Septum * Interatrial septum not well evaluated. Aortic Valve * Aortic valve not well visualized. * No aortic stenosis. * Mild aortic regurgitation. * Moderately calcified aortic valve leaflets. Mitral Valve * Mild mitral annular calcification * Mild-moderate mitral regurgitation. * No mitral stenosis. Tricuspid Valve * Normal tricuspid valve structure. * No tricuspid stenosis. * Mild-moderate tricuspid regurgitation. * Estimated RVSP is RV-RA gradient 35 mmHg. * Mild pulmonary hypertension. Pulmonic Valve * Pulmonic valve is not well visualized. * No pulmonic stenosis. * Trace pulmonic regurgitation. Aorta * Normally sized aortic root. Pericardium * The pericardium appears normal. IVC * The IVC is not well evaluated. Active Medications Acetaminophen (Tylenol) 650 mg PO Q6HR PRN PRN Reason: Mild Pain/Fever Stop: 10/14/18 20:23 Hydrocodone Bitart/Acetaminophen ([place] 5-325 Mg) 1 tab PO Q6HR PRN PRN Reason: Moderate Pain Stop: 10/14/18 20:20 Albuterol Sulfate (Albuterol Inhaler) 2 puff IH Q6HR PRN PRN Reason: Wheezing Stop: 10/14/18 20:20 Apixaban (Eliquis) 5 mg PO BID VIOLETA Stop: 10/15/18 10:46 Aspirin (Aspirin) 81 mg PO DAILY VIOLETA Stop: 10/15/18 09:01 Last Admin: 04/15/18 07:50 Dose: 81 mg Atorvastatin Calcium (Lipitor) 20 mg PO HS VIOLETA Stop: 10/14/18 21:01 Last Admin: 04/14/18 21:52 Dose: 20 mg Dextrose/Water (Dextrose 50% (Syg)) 25 ml IVP AD PRN PRN Reason: Hypoglycemia Stop: 10/14/18 20:43 Furosemide (Lasix) 40 mg IVP BIDDIURETIC VIOLETA Stop: 10/15/18 21:01 Glucagon (Glucagen) 1 mg IM ONCE PRN PRN Reason: Hypoglycemia Stop: 10/14/18 20:43 Glucose (Gluctose) 15 gm PO ONCE PRN PRN Reason: Hypoglycemia Stop: 10/14/18 20:43 Glucose (Gluctose) 30 gm PO ONCE PRN PRN Reason: Hypoglycemia Stop: 10/14/18 20:43 Dextrose (Dextrose 5%) 1,000 mls @ 100 mls/hr IVC .Q10H PRN PRN Reason: HYPOGLYCEMIA Stop: 10/14/18 20:43 Insulin Human Lispro (Humalog) 0 units SQ HS [facility]; Protocol Stop: 10/14/18 21:01 Last Admin: 04/14/18 21:52 Dose: Not Given Insulin Human Lispro (Humalog) 0 units SQ TIDAC [facility]; Protocol Stop: 10/15/18 07:31 Last Admin: 04/15/18 07:44 Dose: Not Given Metoprolol Succinate (Toprol Xl) 12.5 mg PO DAILY [facility] Stop: 10/15/18 09:01 Last Admin: 04/15/18 07:50 Dose: 12.5 mg Naloxone HCl (Narcan) 0.4 mg IVP Q2MIN PRN PRN Reason: SEE COMMENTS Stop: 10/14/18 20:23 Nitroglycerin (Nitroglycerin) 0.4 mg SL Q5MIN PRN PRN Reason: Chest Pain Stop: 10/14/18 20:20 Senna/Docusate Sodium (Senna Plus) 2 each PO BID PRN; Protocol PRN Reason: Constipation Stop: 10/15/18 10:08 Laboratory Tests 04/13/18 04/13/18 04/14/18 13:42 20:10 01:53 Hgb Creatinine Troponin I < 0.03 0.19 H* 0.30 H* B-Natriuretic Peptide 04/14/18 04/14/18 04/15/18 07:40 20:40 03:17 Hgb Creatinine Troponin I 0.30 H* 0.17 H* 0.15 H* B-Natriuretic Peptide 04/15/18 04/15/18 04/15/18 03:17 03:17 03:17 Hgb 11.7 L Creatinine 1.11 Troponin I B-Natriuretic Peptide 813 H - Imaging and Cardiology Chest Xray: report reviewed Echo: report reviewed - EKG Interpretation EKG results cardiology: personally reviewed (ECG with a.fib, HR 87, RBBB noted, non-specific T wave abnormalities noted, similar to previous.), other (Telemetry reviewed with average HR previous 12 hours noted to be 74, a.fib. PVCs noted.) Consult Discharge Plan - Plan Referrals: NONE,PCP [Primary Care Provider] - <Sonia Molina - Last Filed: 04/15/18 16:26> Date of Encounter: 04/15/18 - Attending Attestation Patient was seen and evaluated independently by me. Findings, assessment and plan were discussed at length with patient, questions answered. Agree with nurse practitioner's/resident's documentation. Addition as follows, 82 yoCM ho HFrecEF, ICMP, CABG, PAfib on eliquis, DM. P/w worsening dyspnea with LE edema due to diet indiscretion. Improved after diuresis. ECG SR NS TW abn. Mild flat troponin elevation. Repeated TTE EF 50%, mild-mod MR/TR/AR, mild PH. A: ADHF, HFrecEF, diet indiscretion, currently close to euvolemia Myocardial injury or type II NSTEMI, likely due to ADHF CAD no angina PAF P: diuresis till euvolemia resume eliquis no further inpatient cardiology workup Sonia Molina MD, PhD Assessment and Plan Discussion w patient/family: The assessment and plan as outlined above was discussed with the patient and/or family members who expressed understanding and agreement. All questions were answered. Thank you for involving us in the care of your patient. Please call with any questions. History of Present Illness History of present illness: Mr. Lang is a 82 year old male All Systems Review: The remainder of the systems were reviewed and are negative Results 04/15/18 03:17 04/15/18 03:17 Lab Results 04/14/18 04/14/18 04/14/18 20:40 20:40 20:40 WBC 9.0 Hgb 11.9 L Hct 37.1 L Plt Count 121 L INR 1.1 Sodium Potassium Chloride Carbon Dioxide BUN Creatinine Glucose Calcium Magnesium Total Bilirubin AST ALT Alkaline Phosphatase Troponin I 0.17 H* B-Natriuretic Peptide 01/01/19 01/01/19 01/01/19 03:17 03:17 03:17 WBC 9.1 Hgb 11.7 L Hct 35.9 L Plt Count 112 L INR Sodium 137 Potassium 3.9 Chloride 103 Carbon Dioxide 27 BUN 33 H Creatinine 1.11 Glucose 153 H Calcium 8.6 Magnesium 2.2 Total Bilirubin 1.0 AST 10 L ALT 10 Alkaline Phosphatase 81 Troponin I 0.15 H* B-Natriuretic Peptide 04/15/18 03:17 WBC Hgb Hct Plt Count INR Sodium Potassium Chloride Carbon Dioxide BUN Creatinine Glucose Calcium Magnesium Total Bilirubin AST ALT Alkaline Phosphatase Troponin I B-Natriuretic Peptide 813 H
[2018-04-15] MEDS: Apixaban 5 MG TABLET PO SCH ×2 (11:04→19:42)
[2018-04-15] MEDS: Sennosides/Docusate Sodium TABLET PO PRN ×2 (11:32→19:45)
--- NOTE | 2018-04-15 16:43 | Internal Med Progress Note ---
Hospitalist Progress Note - Encounter Date of Encounter: 04/15/18 Time of Encounter: 11:00 - Subjective Interval History: Patient still with tightness this morning and chest but reports improvement Cardiology consulted with recommendations for IV diuresis - Exam Vitals: Temp Pulse Resp BP Pulse Ox 97.7 F 76 18 117/69 96 04/15/18 16:30 04/15/18 16:30 04/15/18 16:30 04/15/18 16:30 04/15/18 16:30 Exam: Gen.: Nonacute distress, alert and oriented 3 ENT: Mucosal membranes moist Respiratory: Lungs are clear to auscultation bilaterally without any wheezing rhonchi or rales Cardiovascular: Normal S1 and S2 regular rate rhythm no murmurs rubs or gallops Abdomen: Soft, nontender and nondistended with positive bowel sounds Extremities: No lower extremity edema Skin: Normal color - Assessment and Plan (1) CHF (congestive heart failure) Current Visit: No Status: Chronic Assessment and Plan: She with elevated BNP on admission at 813 Echocardiogram on 04/14/18 showed LVEF of 50% with moderate left ventricular diastolic dysfunction. Start IV diuresis per cardiology recommendations for treatment of acute on chronic systolic/diastolic heart failure. (2) Elevated troponin Current Visit: No Status: Acute Assessment and Plan: Patient with elevated troponins on admission but thought to be secondary to demand ischemia per cardiology. Recommendations to continue patient's aspirin, statin and beta aidan (3) Hypertension Current Visit: No Status: Chronic Assessment and Plan: Controlled; continue patient's home dose of beta aidan (4) Hyperlipidemia Current Visit: No Status: Chronic Assessment and Plan: Continue patient's home dose of statin (5) Atrial fibrillation Current Visit: No Status: Chronic (6) CAD (coronary artery disease) Current Visit: No Status: Chronic Assessment and Plan: Patient with known history of coronary arterial disease status post CABG 2014 Elevated troponins and management as above (7) DM type 2 (diabetes mellitus, type 2) Current Visit: No Status: Chronic Assessment and Plan: Continue sliding scale insulin. DVT Prophylaxis: Continue Eliquis - Time Spent with Patient Total time spent is greater than 50% in coordination of care (as documented) at patient's floor/unit and/or counseling patient: Internal Medicine: Result - Labs CBC & Chem 7: 04/15/18 03:17 04/15/18 03:17 Labs: Short CBC 04/14/18 04/15/18 Range/Units 20:40 03:17 WBC 9.0 9.1 (4.3-11.1) K/mcL Hgb 11.9 L 11.7 L (12.9-16.9) g/dL Hct 37.1 L 35.9 L (37.5-50.1) % Plt Count 121 L 112 L (140-400) K/mcL BMP 04/15/18 03:17 Sodium 137 Potassium 3.9 Chloride 103 Carbon Dioxide 27 BUN 33 H Creatinine 1.11 Glucose 153 H Calcium 8.6 Cardiac Enzymes 04/14/18 04/15/18 Range/Units 20:40 03:17 Troponin I 0.17 H* 0.15 H* (< 0.04) ng/mL Liver Function 04/15/18 Range/Units 03:17 Total Bilirubin 1.0 (0.3-1.0) mg/dL AST 10 L (13-39) Units/L ALT 10 (7-52) Units/L Alkaline Phosphatase 81 (34-104) Units/L Albumin 3.5 (3.5-5.7) g/dL - ABG Interpretation ABG results: PT/INR, D-dimer PT 12.3 Seconds (9.4-12.1) H 04/14/18 20:40 - Impressions Impressions Echocardiogram 04/14/18 21:09 Impressions: LVEF 50%. Moderate left ventricular diastolic dysfunction. Mildly dilated right ventricle with normal right ventricular function. Mildly dilated left atrium. Mildly dilated right atrium. Mild aortic regurgitation. Mild-moderate mitral regurgitation. Mild-moderate tricuspid regurgitation. Mild pulmonary hypertension. Recommend LV constrast. Left Ventricular Wall Motion: Rest Echo Findings All wall segments showed normal motion. Findings: Study Quality * Technically sub-optimal due to poor echocardiographic windows. ECG Findings * Sinus rhythm with BBB. Left Ventricle * LVEF 50%. * Normal LV chamber size, wall thickness and systolic function. * Moderate left ventricular diastolic dysfunction. * Atypical septal motion consistent with bundle branch block. Right Ventricle * Mildly dilated right ventricle. * Normal right ventricular function. Left Atrium * Mildly dilated left atrium. Right Atrium * Mildly dilated right atrium. Interatrial Septum * Interatrial septum not well evaluated. Aortic Valve * Aortic valve not well visualized. * No aortic stenosis. * Mild aortic regurgitation. * Moderately calcified aortic valve leaflets. Mitral Valve * Mild mitral annular calcification * Mild-moderate mitral regurgitation. * No mitral stenosis. Tricuspid Valve * Normal tricuspid valve structure. * No tricuspid stenosis. * Mild-moderate tricuspid regurgitation. * Estimated RVSP is RV-RA gradient 35 mmHg. * Mild pulmonary hypertension. Pulmonic Valve * Pulmonic valve is not well visualized. * No pulmonic stenosis. * Trace pulmonic regurgitation. Aorta * Normally sized aortic root. Pericardium * The pericardium appears normal. IVC * The IVC is not well evaluated. Consult Discharge Plan - Plan Referrals: NONE,PCP [Primary Care Provider] - (1) CHF (congestive heart failure) Qualifiers: Heart failure type: combined systolic and diastolic Heart failure chronicity: acute on chronic Qualified Code(s): I50.43 - Acute on chronic combined systolic (congestive) and diastolic (congestive) heart failure (3) Hypertension Qualifiers: Hypertension type: essential hypertension Qualified Code(s): I10 - Essential (primary) hypertension (4) Hyperlipidemia Qualifiers: Hyperlipidemia type: unspecified Qualified Code(s): E78.5 - Hyperlipidemia, unspecified (5) Atrial fibrillation Qualifiers: Atrial fibrillation type: chronic Qualified Code(s): I48.2 - Chronic atrial fibrillation (6) CAD (coronary artery disease) Qualifiers: Coronary Disease-Associated Artery/Lesion type: unspecified vessel or lesion type [place] vs. transplanted heart: [place] heart Associated angina: without an richard Qualified Code(s): I25.10 - Atherosclerotic heart disease of [place] oronary artery without angina pectoris (7) DM type 2 (diabetes mellitus, type 2) Qualifiers: Diabetes mellitus retirement insulin use: without retirement use Diabetes mellitus complication status: with circulatory complication Diabetes mellitus complication detail: with peripheral angiopathy without gangrene Qualified Code(s): E11.51 - Type 2 diabetes mellitus with diabetic peripheral angiopathy without gangrene
[2018-04-15] MEDS: Furosemide 40 MG/4 ML VIAL IVP SCH (19:45)
[2018-04-16] MEDS: Insulin LISPRO 300 UNITS/3 ML VIAL SQ SCH ×2 (07:20→11:42)
[2018-04-16] MEDS: Furosemide 40 MG/4 ML VIAL IVP SCH (07:51)
[2018-04-16] MEDS: Metoprolol XL (24 HR) Succ 25 MG TAB.ER.24H PO SCH (07:51)
[2018-04-16] MEDS: Aspirin 81 MG TAB.CHEW PO SCH (07:51)
[2018-04-16] MEDS: Apixaban 5 MG TABLET PO SCH (07:51)
--- NOTE | 2018-04-16 10:31 | Internal Med Progress Note ---
Hospitalist Progress Note - Encounter Date of Encounter: 04/16/18 - Subjective Interval History: Cardiology consulted with recommendations for IV diuresis - Exam Vitals: Temp Pulse Resp BP Pulse Ox 97.4 F L 65 16 116/69 97 04/16/18 06:35 04/16/18 06:35 04/16/18 06:35 04/16/18 06:35 04/16/18 06:35 - Assessment and Plan (1) CHF (congestive heart failure) Current Visit: No Status: Chronic Assessment and Plan: She with elevated BNP on admission at 813 Echocardiogram on 04/14/18 showed LVEF of 50% with moderate left ventricular diastolic dysfunction. Patient started on IV diuresis per cardiology recommendations for treatment of acute on chronic systolic/diastolic heart failure. He has diuresed over 1.98 L in 24 hours Continue current management (2) Elevated troponin Current Visit: No Status: Acute Assessment and Plan: Patient with elevated troponins on admission but thought to be secondary to demand ischemia per cardiology. Recommendations to continue patient's aspirin, statin and beta aidan (3) Hypertension Current Visit: No Status: Chronic Assessment and Plan: Controlled; continue patient's home dose of beta aidan (4) Hyperlipidemia Current Visit: No Status: Chronic Assessment and Plan: Continue patient's home dose of statin (5) Atrial fibrillation Current Visit: No Status: Chronic Assessment and Plan: Continue beta aidan for rate control and Eliquis for oral anticoagulation (6) CAD (coronary artery disease) Current Visit: No Status: Chronic Assessment and Plan: Patient with known history of coronary arterial disease status post CABG 2014 Elevated troponins and management as above (7) DM type 2 (diabetes mellitus, type 2) Current Visit: No Status: Chronic Assessment and Plan: Continue sliding scale insulin. DVT Prophylaxis: Continue Eliquis - Time Spent with Patient Total time spent is greater than 50% in coordination of care (as documented) at patient's floor/unit and/or counseling patient: Internal Medicine: Result - Labs CBC & Chem 7: 04/15/18 03:17 04/15/18 03:17 - ABG Interpretation ABG results: PT/INR, D-dimer PT 12.3 Seconds (9.4-12.1) H 04/14/18 20:40 Consult Discharge Plan - Plan Referrals: NONE,PCP [Primary Care Provider] - (1) CHF (congestive heart failure) Qualifiers: Heart failure type: combined systolic and diastolic Heart failure chronicity: acute on chronic Qualified Code(s): I50.43 - Acute on chronic combined systolic (congestive) and diastolic (congestive) heart failure (3) Hypertension Qualifiers: Hypertension type: essential hypertension Qualified Code(s): I10 - Essential (primary) hypertension (4) Hyperlipidemia Qualifiers: Hyperlipidemia type: unspecified Qualified Code(s): E78.5 - Hyperlipidemia, unspecified (5) Atrial fibrillation Qualifiers: Atrial fibrillation type: chronic Qualified Code(s): I48.2 - Chronic atrial fibrillation (6) CAD (coronary artery disease) Qualifiers: Coronary Disease-Associated Artery/Lesion type: unspecified vessel or lesion type [place] vs. 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
[2018-04-16 10:49] VITALS: BP 116/71
[2018-04-16 11:04] LABS: Basophils % 0.3 %; Eosinophils # 0.1 K/mcL (0.0-0.6); Eosinophils % 1.3 %; Hematocrit 39.9 % (37.5-50.1); Hemoglobin 12.6 g/dL (12.9-16.9); Immature Granulocytes % 0.6 % (0-4); Lymphocytes # 1.3 K/mcL (0.6-4.6); Lymphocytes % 19.1 %; Mean Corpuscular HGB Conc 31.6 g/dL (31.6-35.5); Mean Corpuscular Volume 88.7 fL (83.0-100.0); Mean Platelet Volume 13.3 fL (9.4-12.4); Monocytes # 0.6 K/mcL (0.0-1.3); Monocytes % 8.6 %; Neutrophils # 4.9 K/mcL (1.6-8.9); Platelet Count 126 K/mcL (140-400); Red Cell Distribution Width 13.3 % (11.5-14.5); Segmented Neutrophils % 70.1 %
[2018-04-16 11:11] LABS: BUN/Creatinine Ratio 24 (6-26); Blood Urea Nitrogen 32 mg/dL (8-23); Calcium 8.8 mg/dL (8.6-10.3); Carbon Dioxide 32 mEq/L (23-29); Chloride 99 mEq/L (98-107); Glucose 266 mg/dL (70-105); Osmolality,Calculated 300 (280-300); Potassium 3.9 mEq/L (3.5-5.1); Sodium 137 mEq/L (136-145); eGFR For Non-African Americans 53 (> 60)
--- NOTE | 2018-04-16 13:19 | Discharge Summary ---
- NOTES TO OUTPATIENT PROVIDER Notes to Outpatient Provider: none Date of Encounter: 04/16/18 Time of Encounter: 11:00 - Discharge Diagnosis (1) CHF (congestive heart failure) Priority: Primary Status: Chronic Qualifiers: Heart failure type: combined systolic and diastolic Heart failure chronicity: acute on chronic Qualified Code(s): I50.43 - Acute on chronic combined systolic (congestive) and diastolic (congestive) heart failure (2) Elevated troponin Priority: Primary Status: Acute (3) Hypertension Priority: Secondary Status: Chronic Qualifiers: Hypertension type: essential hypertension Qualified Code(s): I10 - Essential (primary) hypertension (4) Hyperlipidemia Priority: Secondary Status: Chronic Qualifiers: Hyperlipidemia type: unspecified Qualified Code(s): E78.5 - Hyperlipidemia, unspecified (5) Atrial fibrillation Priority: Secondary Status: Chronic Qualifiers: Atrial fibrillation type: chronic Qualified Code(s): I48.2 - Chronic atrial fibrillation (6) CAD (coronary artery disease) Priority: Secondary Status: Chronic Qualifiers: Coronary Disease-Associated Artery/Lesion type: unspecified vessel or lesion type [place] vs. transplanted heart: [place] heart Associated angina: without angina Qualified Code(s): I25.10 - Atherosclerotic heart disease of [place] c oronary artery without angina pectoris (7) DM type 2 (diabetes mellitus, type 2) Priority: Secondary Status: Chronic Qualifiers: Diabetes mellitus long term care pharmacist insulin use: without snf use Diabetes mellitus complication status: with circulatory complication Diabetes mellitus complication detail: with peripheral angiopathy without gangrene Qualified Code(s): E11.51 - Type 2 diabetes mellitus with diabetic peripheral angiopathy without gangrene Hospital course: Patient is an 82-year-old male with past medical history significant for CABG with 4 vessel bypass in 2011, atrial fibrillation, CHF, COPD, coronary artery disease, diabetes, hyperlipidemia, hypertension, myocardial infarction and valvular heart disease who presented to the ER on 04/14/18 due to chest pain. Patient reported of sudden onset of dyspnea in addition to chest discomfort while doing his usual activities. Patient described the discomfort as intermittent throughout the day so he decided to go to [facility] for further evaluation. At [facility], EKG showed atrial fibrillation/aflutter, right bundle branch block, prior inferior wall infarct. Patient was transferred from [facility] to here for further management. During patients hospital stay, his troponins were elevated suspected to be secondary to demand ischemia in the setting of acute on chronic systolic/diastolic heart failure. Patients symptoms improved with IV diuresis and will be discharged to continue his home dose of oral furosemide and to follow-up with cardiology/primary care as an outpatient. - Time Spent with Patient Total time spent providing and/or coordinating discharge services: - Discharge Medications Home Medications: Glimepiride [Amaryl] 4 mg PO DAILY 11/03/15 [History] Aspirin 81 mg PO DAILY #30 tab.chew 02/28/17 [Rx] Atorvastatin [Lipitor] 20 mg PO HS #30 tablet 02/28/17 [Rx] Furosemide [Lasix] 20 mg PO DAILY #30 tablet 02/28/17 [Rx] HYDROcodone/Acet 5/325 mg [[place] 5-325 mg] 1 tab PO Q6HR PRN #20 tablet 02/28/17 [Rx] Metoprolol XL (24 HR) Succ [Toprol Xl] 12.5 mg PO DAILY #30 tab.er.24h 02/28/17 [Rx] Doxycycline 100 mg PO BID #14 capsule 04/02/18 [Rx] Nystatin/Triamcinolone CRM [Mycolog] 1 appl TP BID #1 tube 04/02/18 [Rx] Albuterol Sulfate [Albuterol Inhaler] 2 puff IH Q6HR PRN #1 hfa.aer.ad 04/13/18 [Rx] Amoxicillin/Clavulanate [Augmentin] 875 mg PO BIDWM #20 tablet 04/13/18 [Rx] Brompheniramine/Pseudoephed/Dm [Bromfed Dm Cough Syrup] 5 ml PO Q4-6H PRN #120 syrup 04/13/18 [Rx] predniSONE [PredniSONE] 40 mg PO DAILY #10 tablet 04/13/18 [Rx] Furosemide [Lasix] 40 mg PO BID 04/14/18 [History] Glipizide-Metformin 2.5-500 mg 500 mg PO BID 04/14/18 [History] Allergies/Adverse Reactions: Allergy/AdvReac Type Severity Reaction Status Date / Time No Known Allergies Allergy Verified 04/13/18 05:42 Date of admission: 04/14/18 20:22 Primary care physician: PCP NONE Consults: 04/14/18 20:18 Consult to Cardiology [CONS] Routine Comment: Consulting Provider: Cardiology Makenna Reason for Consult: USTEMI Call Completed: Yes - Constitutional Vitals: Temp Pulse Resp BP Pulse Ox 97.8 F 75 16 116/71 96 04/16/18 10:47 04/16/18 10:47 04/16/18 10:47 04/16/18 10:47 04/16/18 10:47 General appearance: Present: cooperative, A&O X 3, answers questions appropriately Exam: Gen.: Nonacute distress, alert and oriented 3 Respiratory: Lungs are clear to auscultation bilaterally without any wheezing rhonchi or rales Extremities: No lower extremity edema Skin: Normal color - Patient Status Disposition: Home, Self-Care - Discharge Instructions Follow Up With: Sulaiman Nagel DO [Resident] - 04/21/18 10:00 am (Same location as Dr. Clark's office. If you have any questions please feel free to call the office. Thank you!)
--- NOTE | 2018-04-16 16:23 | Electrocardiograph Report ---
[address] [place], [place] [address] Test Date: 2018-04-14 Pat Name: Bakari Lang Department: 109 Room: 2A15 Gender: M Manager Services: : [id number] Requested By: Jina De Luna Order Number: [id number] Reading MD: Suhas Iniguez Measurements Intervals [place] Rate: 74 P: 185 CO: 138 QRS: -42 QRSD: 142 T: 48 QT: 447 QTc: 474 Interpretive Statements ATRIAL FIBRILLATION RIGHT BUNDLE BRANCH BLOCK MINIMAL VOLTAGE CRITERIA FOR LVH, CONSIDER NORMAL VARIANT INFERIOR MYOCARDIAL INFARCTION, PROBABLY OLD Electronically Signed On 04-16-2018 16:21:21 EST by Suhas Iniguez
== END 2018-04-16 14:22 | disposition home or self-care (01) | DRG 292 ==
LOC: 2ANU → SUATTDRO 20:22
PROVIDERS: ADMIT Internal Medicine; ATTEND Hospitalist

== ENCOUNTER 2018-11-19 14:19 | Observation (INO) ==
--- NOTE | 2018-11-19 14:36 | Emergency Department Note ---
Disposition Clinical Impression: Acute exacerbation of CHF (congestive heart failure) Qualifiers: Heart failure type: unspecified Qualified Code(s): I50.9 - Heart failure, unspecified CAD (coronary artery disease) Qualifiers: Coronary Disease-Associated Artery/Lesion type: unspecified vessel or lesion type [place] vs. transplanted heart: [place] heart Associated angina: with unstable angina Qualified Code(s): I25.110 - Atherosclerotic heart disease of [place] coronary artery with unstable angina pectoris Chest pain Qualifiers: Chest pain type: chest pain due to myocardial ischemia Ischemic chest pain type: unstable angina pectoris Qualified Code(s): I20.0 - Unstable angina Disposition: Admitted As Inpatient Time of Disposition: 07:03 General Adult HPI - General Chief complaint: ED Arrhythmia/Palpitations Stated complaint: A-Fib kishore villegas sent Time Seen by Provider: 11/19/18 14:29 Source: patient Limitations: no limitations - History of Present Illness Pain Scale: 7 - Related Data Home Medications Medication Instructions Recorded Confirmed Glimepiride [Amaryl] 4 mg PO DAILY 11/03/15 11/19/18 Furosemide [Lasix] 40 mg PO BID 04/14/18 11/19/18 metFORMIN [Glucophage] 500 mg PO BID 11/19/18 11/19/18 Previous Rx's Medication Instructions Recorded Metoprolol XL (24 HR) Succ [Toprol 12.5 mg PO DAILY #30 tab.er.24h 02/28/17 Xl] Allergies Allergy/AdvReac Type Severity Reaction Status Date / Time No Known Allergies Allergy Verified 04/13/18 05:42 Past Medical History - Past Medical History Medical history: Reports: arthritis, atrial fibrillation, cardiomyopathy, CHF, COPD, coronary artery disease, diabetes, hyperlipidemia, hypertension, myocardial infarction, valvular heart disease Surgical history: Reports: appendectomy, coronary bypass (CABG), herniorrhaphy, LE vascular intervention, orthopedic, other Psychiatric history: Reports: no psych history - Social History Smoking Status: Never smoker Smokeless Tobacco Status: No Alcohol use: Reports: none Drug use: Reports: none Physical Exam - General Limitations: no limitations General appearance: alert, in no apparent distress Course Vital Signs Temperature 97.6 F 11/19/18 14:21 Pulse Rate 91 11/19/18 14:21 Respiratory Rate 16 11/19/18 14:21 Blood Pressure 110/62 11/19/18 14:21 O2 Sat by Pulse Oximetry 95 11/19/18 14:21 Temperature 98.0 F 11/20/18 02:53 Pulse Rate 72 11/20/18 02:53 Respiratory Rate 18 11/20/18 02:53 Blood Pressure 109/66 11/20/18 02:53 O2 Sat by Pulse Oximetry 96 11/20/18 02:53 Oxygen Delivery Oxygen Delivery Room Air Medical Decision Making - Lab Data Result diagrams: 11/20/18 03:47 11/20/18 03:47 Lab Results 11/19/18 11/19/18 11/19/18 Range/Units 14:55 14:55 14:55 WBC 5.4 (4.3-11.1) K/mcL RBC 3.86 L (4.19-5.50) M/mcL Hgb 10.6 L (12.9-16.9) g/dL Hct 34.0 L (37.5-50.1) % MCV 88.1 (83.0-100.0) fL MCH 27.5 L (28.0-33.3) pg MCHC 31.2 L (31.6-35.5) g/dL RDW 13.7 (11.5-14.5) % Plt Count 115 L (140-400) K/mcL MPV 13.4 H (9.4-12.4) fL Immature Gran % 0.2 (0-4) % Seg Neutrophils % 69.9 % Lymphocytes % 18.5 % Monocytes % 9.3 % Eosinophils % 1.7 % Basophils % 0.4 % Neutrophils # 3.8 (1.6-8.9) K/mcL Lymphocytes # 1.0 (0.6-4.6) K/mcL Monocytes # 0.5 (0.0-1.3) K/mcL Eosinophils # 0.1 (0.0-0.6) K/mcL Basophils # 0.0 (0.0-0.2) K/mcL PT 13.9 H (9.4-12.1) Seconds INR 1.2 Sodium 140 (136-145) mEq/L Potassium 3.4 L (3.5-5.1) mEq/L Chloride 106 (98-107) mEq/L Carbon Dioxide 28 (23-29) mEq/L BUN 26 H (8-23) mg/dL Creatinine 1.05 (0.70-1.30) mg/dL Est GFR ( Amer) > 60 (> 60) Est GFR (Non-Af Amer) > 60 (> 60) BUN/Creatinine Ratio 25 (6-26) Glucose 153 H (70-105) mg/dL Calculated Osmolality 298 (280-300) Calcium 8.8 (8.6-10.3) mg/dL Magnesium 2.0 (1.6-2.6) mg/dL Troponin I 0.03 (< 0.04) ng/mL B-Natriuretic Peptide (Less than 100) pg/mL 11/19/18 Range/Units 14:55 WBC (4.3-11.1) K/mcL RBC (4.19-5.50) M/mcL Hgb (12.9-16.9) g/dL Hct (37.5-50.1) % MCV (83.0-100.0) fL MCH (28.0-33.3) pg MCHC (31.6-35.5) g/dL RDW (11.5-14.5) % Plt Count (140-400) K/mcL MPV (9.4-12.4) fL Immature Gran % (0-4) % Seg Neutrophils % % Lymphocytes % % Monocytes % % Eosinophils % % Basophils % % Neutrophils # (1.6-8.9) K/mcL Lymphocytes # (0.6-4.6) K/mcL Monocytes # (0.0-1.3) K/mcL Eosinophils # (0.0-0.6) K/mcL Basophils # (0.0-0.2) K/mcL PT (9.4-12.1) Seconds INR Sodium (136-145) mEq/L Potassium (3.5-5.1) mEq/L Chloride (98-107) mEq/L Carbon Dioxide (23-29) mEq/L BUN (8-23) mg/dL Creatinine (0.70-1.30) mg/dL Est GFR ( Amer) (> 60) Est GFR (Non-Af Amer) (> 60) BUN/Creatinine Ratio (6-26) Glucose (70-105) mg/dL Calculated Osmolality (280-300) Calcium (8.6-10.3) mg/dL Magnesium (1.6-2.6) mg/dL Troponin I (< 0.04) ng/mL B-Natriuretic Peptide 1383 H (Less than 100) pg/mL Attestation Statement - Attestation Attestation: I reviewed the residents documentation and agree with the residents assessment and plan of care. I have personally had face to face time with the patient. (Brief History, Brief Exam, and MDM) I personally supervised and was present for the murray/critical portions of the following procedures completed by the resident: (add procedures performed here). [id number] time provided I attest to supervising the resident physician's interpretation of the ECG. Patient arrives at the recommendation of his primary care provider due to an abnormal ECG. The patient knows he has a pre-existing history of an arrhythmia. He does not take anticoagulants. He does complain of chest pain, dyspnea, generalized weakness but appears in no acute distress on exam.
--- NOTE | 2018-11-19 14:50 | Emergency Department Note ---
Disposition Clinical Impression: Acute exacerbation of CHF (congestive heart failure) Qualifiers: Heart failure type: unspecified Qualified Code(s): I50.9 - Heart failure, unspecified CAD (coronary artery disease) Qualifiers: Coronary Disease-Associated Artery/Lesion type: unspecified vessel or lesion type [place] vs. transplanted heart: [place] heart Associated angina: with unstable angina Qualified Code(s): I25.110 - Atherosclerotic heart disease of [place] coronary artery with unstable angina pectoris Chest pain Qualifiers: Chest pain type: chest pain due to myocardial ischemia Ischemic chest pain type: unstable angina pectoris Qualified Code(s): I20.0 - Unstable angina Disposition: Admitted As Inpatient Referrals: Shirley Sebastian CNP [Primary Care Provider] - Time of Disposition: 16:40 General Adult HPI - General Chief complaint: ED Arrhythmia/Palpitations Stated complaint: Lien-Jacki villegas sent Time Seen by Provider: 11/19/18 14:29 Source: patient Limitations: no limitations Nursing Notes Reviewed: Yes Vital Signs Reviewed: Yes - History of Present Illness HPI Narrative: 82-year-old male with history of CAD, CHF who presents the emergency department with complaints of shortness of breath, orthopnea and chest pain. The patient states this is been ongoing for approximately the last 2 weeks, worse over the last week. The patient was at a routine follow-up and had an EKG performed which showed atrial fibrillation. He was told to come to the emergency department because of this. He notes that he has had worsening shortness of breath, orthopnea at night and peripheral edema. He denies any fever or chills. He denies any recent long travel. Pain Scale: 7 - Related Data Home Medications Medication Instructions Recorded Confirmed Glimepiride [Amaryl] 4 mg PO DAILY 11/03/15 11/19/18 Furosemide [Lasix] 40 mg PO BID 04/14/18 11/19/18 metFORMIN [Glucophage] 500 mg PO BID 11/19/18 11/19/18 Previous Rx's Medication Instructions Recorded Metoprolol XL (24 HR) Succ [Toprol 12.5 mg PO DAILY #30 tab.er.24h 02/28/17 Xl] Allergies Allergy/AdvReac Type Severity Reaction Status Date / Time No Known Allergies Allergy Verified 04/13/18 05:42 Review of Systems: ROS per history of present illness, all other systems reviewed and negative or normal. All systems ED: reviewed and negative except as stated. Review of Systems: As Per HPI Past Medical History - Past Medical History Attestation: Yes The following information was validated with the patient. Medical history: Reports: arthritis, atrial fibrillation, cardiomyopathy, CHF, COPD, coronary artery disease, diabetes, hyperlipidemia, hypertension, myocardial infarction, valvular heart disease Surgical history: Reports: appendectomy, coronary bypass (CABG), herniorrhaphy, LE vascular intervention, orthopedic, other Psychiatric history: Reports: no psych history - Social History Smoking Status: Never smoker Smokeless Tobacco Status: No Alcohol use: Reports: none Drug use: Reports: none Physical Exam General: Conversant. No apparent distress. Follow commands. Appears stated age. Neck: No JVD. Trachea midline. Neck supple. Eyes: PERRL. No scleral icterus. HENT: Normocephalic and atraumatic. Moist mucus membranes. Cardiovascular: Regular rate and rhythm. Normal S1 and S2. No murmurs appreciated. Normal capillary refill. Extremities well perfused with 2+ distal pulses bilaterally.1-2+ peripheral edema. Pulmonary: decreased breath sounds in right lower lobe. Crackles in base. No wheezing. Speaks in full sentences. Abdomen: Soft, nondistended, and tontender. No bruits or masses. No guarding. Neuro: Alert and oriented x3. No slurred speech. No focal deficits noted. Skin: No rashes noted on visualized skin. Musculoskeletal: No bony abnormalities visualized. Moves all extremities. Psych: Normal mood. Pleasant. Makes appropriate eye contact. - General Limitations: no limitations General appearance: alert, in no apparent distress Course Vital Signs Temperature 97.6 F 11/19/18 14:21 Pulse Rate 91 11/19/18 14:21 Respiratory Rate 16 11/19/18 14:21 Blood Pressure 110/62 11/19/18 14:21 O2 Sat by Pulse Oximetry 95 11/19/18 14:21 Temperature 97.6 F 11/19/18 14:21 Pulse Rate 75 11/19/18 16:00 Respiratory Rate 16 11/19/18 15:52 Blood Pressure 112/69 11/19/18 16:00 O2 Sat by Pulse Oximetry 98 11/19/18 16:00 Oxygen Delivery Oxygen Delivery Room Air Medical Decision Making - [facility] Narrative Medical decision making narrative: 82-year-old male with history of CHF, CAD status post CABG who presents the emergency department secondary to dysrhythmia, chest pain and shortness of breath from primary care office. Patient has prior knowledge of atrial fibrilla tion. The patient's vital signs are stable. He is not hypoxic. EKG shows intrafibrillation with right bundle branch block, similar to previous. The patient does have crackles bilaterally as well as peripheral edema above his baseline. Laboratory evaluation shows stable blood chronic-appearing anemia. He has mild hypokalemia. Otherwise kidney function stable. Troponin 0.03. Chest x-ray shows bilateral pulmonary edema. Given the patient's clinical diagnoses of CHF we will give 40 mg IV Lasix. Given his history of CAD status post CABG and worsening orthopnea as well as chest pain will admit the patient for further cardiac evaluation. Discussed case with on-call hospitalist Dr. Zaman who agrees with plan for admission and accepts the patient to the inpatient service. Patient agrees with and understands course of treatment plan including plan for admission. All questions answered. - Medical Records Medical records reviewed: Yes I reviewed the patient's medical records. - Lab Data Lab results reviewed: Yes I reviewed the patient's lab results. Result diagrams: 11/19/18 14:55 11/19/18 14:55 Lab Results 11/19/18 11/19/18 11/19/18 Range/Units 14:55 14:55 14:55 WBC 5.4 (4.3-11.1) K/mcL RBC 3.86 L (4.19-5.50) M/mcL Hgb 10.6 L (12.9-16.9) g/dL Hct 34.0 L (37.5-50.1) % MCV 88.1 (83.0-100.0) fL MCH 27.5 L (28.0-33.3) pg MCHC 31.2 L (31.6-35.5) g/dL RDW 13.7 (11.5-14.5) % Plt Count 115 L (140-400) K/mcL MPV 13.4 H (9.4-12.4) fL Immature Gran % 0.2 (0-4) % Seg Neutrophils % 69.9 % Lymphocytes % 18.5 % Monocytes % 9.3 % Eosinophils % 1.7 % Basophils % 0.4 % Neutrophils # 3.8 (1.6-8.9) K/mcL Lymphocytes # 1.0 (0.6-4.6) K/mcL Monocytes # 0.5 (0.0-1.3) K/mcL Eosinophils # 0.1 (0.0-0.6) K/mcL Basophils # 0.0 (0.0-0.2) K/mcL PT 13.9 H (9.4-12.1) Seconds INR 1.2 Sodium 140 (136-145) mEq/L Potassium 3.4 L (3.5-5.1) mEq/L Chloride 106 (98-107) mEq/L Carbon Dioxide 28 (23-29) mEq/L BUN 26 H (8-23) mg/dL Creatinine 1.05 (0.70-1.30) mg/dL Est GFR ( Amer) > 60 (> 60) Est GFR (Non-Af Amer) > 60 (> 60) BUN/Creatinine Ratio 25 (6-26) Glucose 153 H (70-105) mg/dL Calculated Osmolality 298 (280-300) Calcium 8.8 (8.6-10.3) mg/dL Magnesium 2.0 (1.6-2.6) mg/dL Troponin I 0.03 (< 0.04) ng/mL B-Natriuretic Peptide (Less than 100) pg/mL 11/19/18 Range/Units 14:55 WBC (4.3-11.1) K/mcL RBC (4.19-5.50) M/mcL Hgb (12.9-16.9) g/dL Hct (37.5-50.1) % MCV (83.0-100.0) fL MCH (28.0-33.3) pg MCHC (31.6-35.5) g/dL RDW (11.5-14.5) % Plt Count (140-400) K/mcL MPV (9.4-12.4) fL Immature Gran % (0-4) % Seg Neutrophils % % Lymphocytes % % Monocytes % % Eosinophils % % Basophils % % Neutrophils # (1.6-8.9) K/mcL Lymphocytes # (0.6-4.6) K/mcL Monocytes # (0.0-1.3) K/mcL Eosinophils # (0.0-0.6) K/mcL Basophils # (0.0-0.2) K/mcL PT (9.4-12.1) Seconds INR Sodium (136-145) mEq/L Potassium (3.5-5.1) mEq/L Chloride (98-107) mEq/L Carbon Dioxide (23-29) mEq/L BUN (8-23) mg/dL Creatinine (0.70-1.30) mg/dL Est GFR ( Amer) (> 60) Est GFR (Non-Af Amer) (> 60) BUN/Creatinine Ratio (6-26) Glucose (70-105) mg/dL Calculated Osmolality (280-300) Calcium (8.6-10.3) mg/dL Magnesium (1.6-2.6) mg/dL Troponin I (< 0.04) ng/mL B-Natriuretic Peptide 1383 H (Less than 100) pg/mL - Radiology Data Radiology results reviewed: Yes I reviewed the patient's radiology results. Chest X-Ray 11/19/18 14:34 IMPRESSION: Patchy airspace opacities bilaterally, may be related to mild pulmonary edema versus pneumonia. Recommend follow-up to resolution and to exclude underlying lung mass, particularly in the left parahilar region/mid lung field. D/ / Charlie Morales MD / Charlie Morales MD Interpreting Provider: Charlie Morales MD - EKG Data EKG #1 EKG attestation: Yes I reviewed and interpreted this EKG. EKG results narrative: Intrafibrillation with a right bundle-branch block. When compared with prior from 04/14/18 there is no significant change.
[2018-11-19 15:11] LABS: Basophils % 0.4 %; Eosinophils # 0.1 K/mcL (0.0-0.6); Eosinophils % 1.7 %; Hemoglobin 10.6 g/dL (12.9-16.9); Immature Granulocytes % 0.2 % (0-4); Lymphocytes % 18.5 %; Mean Corpuscular HGB Conc 31.2 g/dL (31.6-35.5); Mean Corpuscular Hemoglobin 27.5 pg (28.0-33.3); Mean Corpuscular Volume 88.1 fL (83.0-100.0); Mean Platelet Volume 13.4 fL (9.4-12.4); Monocytes # 0.5 K/mcL (0.0-1.3); Monocytes % 9.3 %; Neutrophils # 3.8 K/mcL (1.6-8.9); Platelet Count 115 K/mcL (140-400); Red Blood Count 3.86 M/mcL (4.19-5.50); Red Cell Distribution Width 13.7 % (11.5-14.5); Segmented Neutrophils % 69.9 %; White Blood Count 5.4 K/mcL (4.3-11.1)
[2018-11-19 15:21] LABS: INR 1.2; Prothrombin Time 13.9 Seconds (9.4-12.1)
[2018-11-19 15:42] LABS: BUN/Creatinine Ratio 25 (6-26); Blood Urea Nitrogen 26 mg/dL (8-23); Calcium 8.8 mg/dL (8.6-10.3); Carbon Dioxide 28 mEq/L (23-29); Chloride 106 mEq/L (98-107); Glucose 153 mg/dL (70-105); Osmolality,Calculated 298 (280-300); Potassium 3.4 mEq/L (3.5-5.1); Sodium 140 mEq/L (136-145); Troponin I 0.03 ng/mL (< 0.04); eGFR For African Americans > 60 (> 60); eGFR For Non-African Americans > 60 (> 60)
[2018-11-19] MEDS ORDERED: Furosemide 40 MG/4 ML VIAL IVP ONE (16:06)
[2018-11-19] MEDS ORDERED: Naloxone 0.4 MG/ML INJ IVP PRN (17:16)
[2018-11-19] MEDS ORDERED: *HR* Dextrose 50 % in Water (Syg) 50 ML SYRINGE IVP PRN (17:21)
[2018-11-19] MEDS ORDERED: D5% in Water 1,000 ML IVC PRN (17:21)
[2018-11-19] MEDS ORDERED: Dextrose Gel 15 GM/37.5 ML TUBE PO PRN ×2 (17:21)
[2018-11-19] MEDS ORDERED: Potassium Chloride Elixir 20 MEQ/15 ML UDC PO ONE (17:23)
--- NOTE | 2018-11-19 17:31 | Internal Med History&Physical ---
Date of Encounter: 11/19/18 Time of Encounter: 17:00 Internal Medicine - H&P: HPI Chief complaint: Dyspnea Admitted From: Home Plans for Post Hospital Care: Home History of present illness: Mr. Lang is a 82 year old male with history of CAD status post CABG, atrial fibrillation noncompliant with anticoagulation, type II DM, PAD status post lower extremity stent, ocular cancer, ANUP and noncompliant with CPAP who was sent from his PCP office due to dyspnea. Patient's symptoms started a few days ago before presentation. He reported dyspnea, leg swelling, orthopnea and PND. He skipped scattered doses of his Lasix in the past few weeks as he does not want to wake up overnight to urinate. He denied cough, sputum production, fever, chills, night sweats, nausea, vomiting or chest pain. He has no abdominal pain, changes in urinary or bowel habits. He denied any recent sick contacts, recent travel or unintentional weight loss. In the emergency department, patient was hemodynamically stable. Saturating no rmal on room air. EKG atrial fibrillation and right BBB. Negative. BNP is elevated, rest of the blood work was unremarkable. Patient was given 1 dose of IV Lasix and will be admitted to the hospital for further management. Past Med Surg Social Fam HX - Past Medical History Medical history: arthritis, atrial fibrillation, cardiomyopathy, CHF, COPD, coronary artery disease, diabetes, hyperlipidemia, hypertension, myocardial inf arction, valvular heart disease Additional medical history: gallstones, cholecyctitis Psychiatric history: no psych history - Past Surgical History Surgical History: appendectomy, coronary bypass (CABG), herniorrhaphy, LE vascular intervention, orthopedic, other Additional surgical history: left hand surgery. left great toe amputation. right great toe partial amputation, RT GROIN FILTER - Social History Smoking Status: Former smoker Smokeless Tobacco Status: No Alcohol use: none Drug use: none Activity Level: Independent ambulation Recent Out of Country Travel Within the Last 8 Weeks: No Exposure or Possible Exposure to Illness During Travel: No - Family History Father Living Status: Hx Family Cardiac Disorders: Yes Mother Living Status: - Additional Family History Additional family history: No family history of malignancies. Internal Medicine - H&P: Meds Glimepiride [Amaryl] 4 mg PO DAILY 11/03/15 [History] Metoprolol XL (24 HR) Succ [Toprol Xl] 12.5 mg PO DAILY #30 tab.er.24h 02/28/17 [Rx] Furosemide [Lasix] 40 mg PO BID 04/14/18 [History] metFORMIN [Glucophage] 500 mg PO BID 11/19/18 [History] Allergy/AdvReac Type Severity Reaction Status Date / Time No Known Allergies Allergy Verified 04/13/18 05:42 All Systems PM: A 10-system review of systems was performed and is negative for pertinent findings except as documented above in the HPI. - Constitutional Vitals: Temp Pulse Resp BP Pulse Ox 97.6 F 75 16 112/69 98 11/19/18 14:21 11/19/18 16:00 11/19/18 15:52 11/19/18 16:00 11/19/18 16:00 Exam: General: Patient is alert, oriented 3. Head: Atraumatic, normal inspection, normocephalic. Eye: EOMI, PERRLA, no scleral icterus noted. ENT: Mucous membranes moist. No odontogenic infection noted. Neck: Normal inspection, no meningismus. Respiratory: No labored breathing. Bibasilar crackles. Cardiovascular: Regular rate and IRregular rhythm, +1 bilateral lower extremity edema. GI: Soft, nondistended, normal bowel sounds. Extremities:No joint swelling,or tenderness noted. Neurological: Alert, oriented 3, no focal deficits. Psychiatric: normal affect, normal mood. Skin: Dry, intact, warm. Normal color. No rashes. Internal Med - H&P Results - Labs CBC & Chem 7: 11/19/18 14:55 11/19/18 14:55 Labs: Short CBC 11/19/18 Range/Units 14:55 WBC 5.4 (4.3-11.1) K/mcL Hgb 10.6 L (12.9-16.9) g/dL Hct 34.0 L (37.5-50.1) % Plt Count 115 L (140-400) K/mcL Neutrophils # 3.8 (1.6-8.9) K/mcL BMP 11/19/18 14:55 Sodium 140 Potassium 3.4 L Chloride 106 Carbon Dioxide 28 BUN 26 H Creatinine 1.05 Glucose 153 H Calcium 8.8 Cardiac Enzymes 11/19/18 Range/Units 14:55 Troponin I 0.03 (< 0.04) ng/mL - EKG Data -: EKG Interpreted by Myself (Atrial fibrillation with right bundle branch block) - EKG Data Prior EKG available for review: yes When compared to previous EKG: there is no significant change - Impressions ITS Impressions Chest X-Ray 11/19/18 14:34 IMPRESSION: Patchy airspace opacities bilaterally, may be related to mild pulmonary edema versus pneumonia. Recommend follow-up to resolution and to exclude underlying lung mass, particularly in the left parahilar region/mid lung field. D/ / Charlie Morales MD / Charlie Morales MD Interpreting Provider: Charlie Morales MD - Diagnostic Studies Chest x-ray Status: image reviewed by me - Assessment and Plan (1) Heart failure, diastolic, with acute decompensation Current Visit: Yes Status: Acute (2) CAD (coronary artery disease) Current Visit: Yes Status: Chronic Qualifiers: Coronary Disease-Associated Artery/Lesion type: unspecified vessel or lesion type [place] vs. 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 use Diabetes mellitus complication status: with circulatory complication Diabetes mellitus complication detail: with peripheral angiopathy without gangrene Qualified Code(s): E11.51 - Type 2 diabetes mellitus with diabetic peripheral angiopathy without gangrene (4) Hyperlipidemia Current Visit: Yes Status: Chronic Qualifiers: Hyperlipidemia type: unspecified Qualified Code(s): E78.5 - Hyperlipidemia, unspecified (5) Hypertension Current Visit: Yes Status: Chronic Qualifiers: Hypertension type: essential hypertension Qualified Code(s): I10 - Essential (primary) hypertension (6) PVD (peripheral vascular disease) Current Visit: No Status: Chronic - Summary of Assessment and Plan Summary of Assessment and Plan: Mr. Lang is a 82 year old male with history of CAD status post CABG, atrial fibrillation noncompliant with anticoagulation, type II DM, PAD status post lower extremity stent, ocular cancer, ANUP and noncompliant with CPAP who was sent from his PCP office due to dyspnea. Symptoms are managed as following.: acute decompensated heart failure presenting ejection fraction: - 2/2 noncompliance with his Lasix. He is on Lasix 40 mg twice a day at home. - EKG with no ischemic changes. Troponin 1 is negative. - Chest x-ray concerning for pulmonary edema versus pneumonia, will check procalcitonin level tomorrow as the patient has no leukocytosis or signs of symptoms of pneumonia. - We will give another dose of IV Lasix tomorrow and then switched to by mouth, monitor input and output, daily weight. Atrial fibrillation: - Rate controlled, we will continue home dose Lopressor. - Patient was not taking Eliquis at home as he hate pills, will resume it here as he interested to start it back. Hypokalemia: - We will replete potassium and check BMP tomorrow. Check magnesium level. CAD status post CABG: - Patient is not compliant with aspirin or cholesterol pill. Type II DM: - Hold metformin, Accu-Cheks before meals, sliding scale insulin. DVT prophylaxis: Eliquis - Time Spent With Patient Total time spent is greater than 50% in coordination of care (as documented) at patient's floor/unit and/or counseling patient:
--- NOTE | 2018-11-19 18:33 | Electrocardiograph Report ---
[facility] Test Date: 2018-11-19 Pat Name: Bakari Lang Department: [id number] Room: 3B35 Gender: M Broadcast Checker: : 1935 Requested By: Olamide Salazar Order Number: [id number] Reading MD: Beau King Measurements Intervals [place] Rate: 87 P: 243 MD: 153 QRS: -37 QRSD: 159 T: 94 QT: 425 QTc: 512 Interpretive Statements Ectopic atrial rhythm Right bundle branch block Electronically Signed On 11-19-2018 18:32:21 EDT by Beau King
[2018-11-19] MEDS ORDERED: Perflutren Lipid Microsphere 1.3 ML in 0.9 % Sodium Chloride 8.7 ML IVP ONE (20:11)
[2018-11-19] MEDS: Apixaban 5 MG TABLET PO SCH (20:44)
[2018-11-20 04:22] LABS: Hemoglobin 10.9 g/dL (12.9-16.9); Mean Corpuscular HGB Conc 32.1 g/dL (31.6-35.5); Mean Corpuscular Hemoglobin 28.5 pg (28.0-33.3); Mean Corpuscular Volume 88.8 fL (83.0-100.0); Mean Platelet Volume 12.8 fL (9.4-12.4); Platelet Count 105 K/mcL (140-400); Red Blood Count 3.83 M/mcL (4.19-5.50); Red Cell Distribution Width 13.8 % (11.5-14.5); White Blood Count 5.3 K/mcL (4.3-11.1)
[2018-11-20 04:42] LABS: BUN/Creatinine Ratio 24 (6-26); Blood Urea Nitrogen 25 mg/dL (8-23); Calcium 8.9 mg/dL (8.6-10.3); Carbon Dioxide 28 mEq/L (23-29); Chloride 104 mEq/L (98-107); Glucose 139 mg/dL (70-105); Magnesium 2.1 mg/dL (1.6-2.6); Osmolality,Calculated 299 (280-300); Potassium 3.7 mEq/L (3.5-5.1); Sodium 141 mEq/L (136-145); eGFR For African Americans > 60 (> 60); eGFR For Non-African Americans > 60 (> 60)
[2018-11-20] MEDS: Insulin LISPRO 300 UNITS/3 ML VIAL SQ SCH ×2 (07:45→11:30)
[2018-11-20] MEDS: Apixaban 5 MG TABLET PO SCH (07:45)
[2018-11-20] MEDS ORDERED: Furosemide 40 MG/4 ML VIAL IVP ONE (08:00)
--- NOTE | 2018-11-20 10:39 | Cardiology Consult Note ---
<Kun Fernandez N - Last Filed: 11/20/18 14:04> Date of Encounter: 11/20/18 Time of Encounter: 10:29 Assessment and Plan (1) CHF exacerbation Status: Chronic 82M with significant pmh of CAD with CABG, CHF EF of 35%, and Chronic A-fib presents with 2 days of SOB after stopping taking lasix due to nocturia. Troponins 2 negative. BNP elevated at 1383. Patient's ECG Atrial Fibrillation without evidence of acute ischemia. Chest x-ray showing mild pulmonary edema versus pneumonia. Echo 11/19/18 performed with EF of 35% and LVH with right ventricular dilation. Patient previous echo on 04/14/18 with EF of 50%. Pt seen by Dr. Gomes on 04/23/18 for a followup from his last hospital admission at that time pt was on Lasix 40 mg BID, Lipitor 20 mg, Aspirin 81 mg, Lisinopril 2.5 mg, Toprol XL 25 mg, and Eliquis 5 mg. -Decrease in EF from 50% to 35% since 04/14/18 will need a non-urgent cath to evaluate for reason of decrease in EF. -Continue Lasix therapy at 40 mg BID, suggest pt take second dose of lasix earlier in the day to prevent frequent urination at night. -Continue home medication regimen upon discharge and encourage pt compliance. -Will have pt f/u with Dr. Gomes in the next few weeks. Qualifiers: Heart failure type: systolic Qualified Code(s): I50.23 - Acute on chronic systolic (congestive) heart failure (2) CAD (coronary artery disease) Status: Chronic Qualifiers: Coronary Disease-Associated Artery/Lesion type: bypass graft [place] vs. transplanted heart: [place] heart Associated angina: without angina Qualified Code(s): I25.810 - Atherosclerosis of coronary artery bypass graft(s) without angina pectoris (3) Atrial fibrillation Status: Chronic Qualifiers: Atrial fibrillation type: chronic Qualified Code(s): I48.2 - Chronic atrial fibrillation (4) PVD (peripheral vascular disease) Status: Chronic Discussion w patient/family: The assessment and plan as outlined above was discussed with the patient and/or family members who expressed understanding and agreement. All questions were answered. Thank you for involving us in the care of your patient. Please call with any questions. History of Present Illness Consult date: 11/20/18 Chief complaint: SOB History of present illness: Mr. Lang is a 82 year old male w significant PMH of CAD with CABG, atrial fibrillation, CHF, hypertension, hyperlipidemia, diabetes, and PAD with lower extremity stenting. Patient presents with shortness of breath for the past few days after being seen at his PCP office. Patient also complaining of leg swelling and orthopnea. Patient states he has missed doses of his Lasix in the past few weeks due nocturia. Patient also on metoprolol XL 12.5 daily, metformin, and glimepiride at home. There is no anticoagulation listed in home medications. Since presentation patient's vital signs have been stable. Troponins 2 negative. BNP elevated at 1383. Patient's ECG Atrial Fibrillation without evidence of acute ischemia. Chest x-ray showing mild pulmonary edema versus p neumonia. Echo 11/19/18 performed with EF of 35% and LVH with right ventricular dilation. Patient previous echo on 04/14/18 with EF of 50%. Past Med Surg Social Fam HX - Past Medical History Medical history: arthritis, atrial fibrillation, cardiomyopathy, CHF, COPD, coronary artery disease, diabetes, hyperlipidemia, hypertension, myocardial infarction, valvular heart disease Additional medical history: gallstones, cholecyctitis Psychiatric history: no psych history - Past Surgical History Surgical History: appendectomy, coronary bypass (CABG), herniorrhaphy, LE vascular intervention, orthopedic, other Additional surgical history: left hand surgery. left great toe amputation. right great toe partial amputation, RT GROIN FILTER - Social History Smoking Status: Former smoker Smokeless Tobacco Status: No Alcohol use: none Drug use: none - Family History Father Living Status: Hx Family Cardiac Disorders: Yes Mother Living Status: Medications and Allergies Glimepiride [Amaryl] 4 mg PO DAILY 11/03/15 [History] Metoprolol XL (24 HR) Succ [Toprol Xl] 12.5 mg PO DAILY #30 tab.er.24h 02/28/17 [Rx] Furosemide [Lasix] 40 mg PO BID 04/14/18 [History] metFORMIN [Glucophage] 500 mg PO BID 11/19/18 [History] Apixaban [Eliquis] 5 mg PO BID #60 tablet 11/20/18 [Rx] Aspirin Enteric Coated [Aspirin EC] 81 mg PO DAILY #90 tablet. 11/20/18 [Rx] Atorvastatin [Lipitor] 40 mg PO HS #30 tablet 11/20/18 [Rx] Allergy/AdvReac Type Severity Reaction Status Date / Time No Known Allergies Allergy Verified 04/13/18 05:42 All Systems Review: The remainder of the systems were reviewed and are negative - Constitutional Constitutional: no chills, no fever(s) - EENT Eyes: no blurred vision, no loss of vision - Cardiovascular Cardiovascular: no chest pain at rest, no chest pain with exertion, no diaphoresis, no dyspnea at rest, no dyspnea on exertion, no leg edema, no lightheadedness - Respiratory Respiratory: no cough, no dyspnea - Gastrointestinal Gastrointestinal: no abdominal pain, no diarrhea, no nausea - Musculoskeletal Musculoskeletal: no muscle cramps, no muscle weakness - Integumentary Integumentary: no erythema, no rash - Neurological Neurological: no dizziness, no loss of vision, no syncope - Psychiatric Psychiatric: no anxiety, no depression - Hematological/Lymphatic Hematologic/Lymphatic: no easy bleeding, no easy bruising Physical Examination Vital Signs, Last 4 Hours Temp Pulse Resp BP Pulse Ox 11/20/18 07:40 97.8 F 86 18 141/79 94 General: Conversant, No Apparent Distress HEENT: Atraumatic, Normocephaly, Mucus Membranes Moist Neck: No JVD, Normal carotid pulses Cardiac: Normal S1 and S2, No Murmur Lungs: Other (Bilateral Lower Lobe rales.) Neuro: Alert and responsive, No focal deficits noted Abdomen: Soft, Non-Tender Skin: No rashes noted on visualized skin Musculoskeletal: No Chest Wall Tenderness Extremities: No Clubbing, No Edema (Chronic venous changes to the bilateral extremities.) Results 11/20/18 03:47 11/20/18 03:47 Lab Results 11/19/18 11/19/18 11/19/18 14:55 14:55 14:55 WBC 5.4 Hgb 10.6 L Hct 34.0 L Plt Count 115 L INR 1.2 Sodium 140 Potassium 3.4 L Chloride 106 Carbon Dioxide 28 BUN 26 H Creatinine 1.05 Glucose 153 H Calcium 8.8 Magnesium 2.0 Troponin I 0.03 B-Natriuretic Peptide 11/19/18 11/20/18 11/20/18 14:55 03:47 03:47 WBC 5.3 Hgb 10.9 L Hct 34.0 L Plt Count 105 L INR Sodium 141 Potassium 3.7 Chloride 104 Carbon Dioxide 28 BUN 25 H Creatinine 1.05 Glucose 139 H Calcium 8.9 Magnesium 2.1 Troponin I B-Natriuretic Peptide 1383 H 11/20/18 03:47 WBC Hgb Hct Plt Count INR Sodium Potassium Chloride Carbon Dioxide BUN Creatinine Glucose Calcium Magnesium Troponin I 0.03 B-Natriuretic Peptide Consult Discharge Plan - Plan Instructions: Aspirin (By mouth), Atorvastatin (By mouth), Apixaban (By mouth), Heart Failure (DC), Heart Failure (GEN), Heart Failure, Medical Affairs Leader (GEN) Referrals: Shirley Sebastian CNP [Primary Care Provider] - 12/02/18 10:45 am Dilia Gomes MD [Partnered Physician] - 12/10/18 1:30 pm Prescriptions: Aspirin Enteric Coated [Aspirin EC] 81 mg PO DAILY #90 tablet. Apixaban [Eliquis] 5 mg PO BID #60 tablet Atorvastatin [Lipitor] 40 mg PO HS #30 tablet <Sonia Molina - Last Filed: 11/20/18 16:26> Date of Encounter: 11/20/18 - Attending Attestation Patient was seen and evaluated independently by me. Findings, assessment and plan were discussed at length with patient, questions answered. Agree with nurse practitioner's/resident's documentation. Addition as follows, 82yo CM ho remote CABG, HFrEF recovered EF 50% 2017, chronic Afib on eliquis, PAD, HTN, DM, HLD. P/w dyspnea and LE edema after skipping several night dose of lasix due to nocturia, which resolved after resuming lasix. Repeated TTE EF 35%. Neg trop. ECG/tele Afib old RBBB, no ischemic changes. No chest pain with daily walking 1 mile, no palpitations, dizziness. VSS, CTA B/L, IR, no LE edema. A: ADHF, NYHA II, mild hypervolemia due to skipping lasix resolved, currently euvolemia HFrEF recovered EF, now recurrent low EF to 35% c/w 8 months ago, duration unclear, etiolog ddx ICMP/med non-compliance/PAF RVR CAD s/p remote CABG, no evidence of ACS or angina PAF rate ctr ok, on eliquis P: discussed with pt necessity for LHC, but pt declined it during this hospitalization, stated he needs to go home taking care of girl friend. ask pt to avoid strain, med compliance, if chest pain/dyspnea, come to ED schedule cards appt [facility] for LHC c/w BB, ACEi, lasix, ASA, statin, eliquis Sonia Molina MD, PhD Assessment and Plan Discussion w patient/family: The assessment and plan as outlined above was discussed with the patient and/or family members who expressed understanding and agreement. All questions were answered. Thank you for involving us in the care of your patient. Please call with any questions. History of Present Illness History of present illness: Mr. Lang is a 82 year old male All Systems Review: The remainder of the systems were reviewed and are negative Results 11/20/18 03:47 11/20/18 03:47 Lab Results 11/19/18 11/20/18 11/20/18 14:55 03:47 03:47 WBC 5.3 Hgb 10.9 L Hct 34.0 L Plt Count 105 L Sodium 141 Potassium 3.7 Chloride 104 Carbon Dioxide 28 BUN 25 H Creatinine 1.05 Glucose 139 H Calcium 8.9 Magnesium 2.1 Troponin I B-Natriuretic Peptide 1383 H 11/20/18 03:47 WBC Hgb Hct Plt Count Sodium Potassium Chloride Carbon Dioxide BUN Creatinine Glucose Calcium Magnesium Troponin I 0.03 B-Natriuretic Peptide
[2018-11-20 12:14] VITALS: BP 120/68
--- NOTE | 2018-11-20 14:37 | Discharge Summary ---
- NOTES TO OUTPATIENT PROVIDER Notes to Outpatient Provider: Patient presented with acute decompensated heart failure secondary to noncompliance with diuretics. EF dropped from 50% to 35%. Cardiology was consulted and they recommended to Follow-up with cardiology as outpatient for need for left heart catheterization. I refilled his Eliquis as per his request and started him on aspirin and Lipitor. He may need a workup for anemia as outpatient. Date of Encounter: 11/20/18 Time of Encounter: 10:00 - Discharge Diagnosis (1) Heart failure, diastolic, with acute decompensation Priority: Primary Status: Acute (2) CAD (coronary artery disease) Priority: Secondary Status: Chronic Qualifiers: Coronary Disease-Associated Artery/Lesion type: bypass graft [place] vs. transplanted heart: [place] heart Associated angina: without angina Qualified Code(s): I25.810 - Atherosclerosis of coronary artery bypass graft(s) without angina pectoris (3) DM type 2 (diabetes mellitus, type 2) Priority: Secondary Status: Chronic Qualifiers: Diabetes mellitus fpc insulin use: without intermediate designer use Diabetes mellitus complication status: with circulatory complication Diabetes mellitus complication detail: with peripheral angiopathy without gangrene Qualified Code(s): E11.51 - Type 2 diabetes mellitus with diabetic peripheral angiopathy without gangrene (4) Hyperlipidemia Priority: Secondary Status: Chronic Qualifiers: Hyperlipidemia type: unspecified Qualified Code(s): E78.5 - Hyperlipidemia, unspecified (5) Hypertension Priority: Secondary Status: Chronic Qualifiers: Hypertension type: essential hypertension Qualified Code(s): I10 - Essential (primary) hypertension (6) PVD (peripheral vascular disease) Priority: Secondary Status: Chronic Hospital course: Mr. Lang is a 82 year old male with history of CAD status post CABG, atrial fibrillation noncompliant with anticoagulation, type II DM, PAD status post lower extremity stent, ocular cancer, ANUP and noncompliant with CPAP who was managing the hospital for acute decompensated heart failure secondary to noncompliance with diuretics. BNP was elevated, chest x-ray with pulmonary edema. Patient was started on IV Lasix with significant improvement in his symptoms. Limited echocardiogram revealed drop in ejection fraction from 50% to 35%. Cardiology service was consulted and they recommended follow-up with outpatient cardiology for nonemergent left heart catheterization. Patient was consulted about the importance of taking his medication on daily basis. He verbalized understanding. Today, patient is hemodynamically stable. He is asymptomatic and he will be discharged home in stable condition. I refilled his Eliquis as per his request and started him on aspirin and Lipitor giving his history of CAD. Discharge discussed with: patient - Time Spent with Patient Total time spent providing and/or coordinating discharge services: 40 minutes - Discharge Medications Prescriptions: New Aspirin Enteric Coated [Aspirin EC] 81 mg PO DAILY #90 tablet. Apixaban [Eliquis] 5 mg PO BID #60 tablet Atorvastatin [Lipitor] 40 mg PO HS #30 tablet Continued Glimepiride [Amaryl] 4 mg PO DAILY Metoprolol XL (24 HR) Succ [Toprol Xl] 12.5 mg PO DAILY #30 tab.er.24h Furosemide [Lasix] 40 mg PO BID metFORMIN [Glucophage] 500 mg PO BID Home Medications: Glimepiride [Amaryl] 4 mg PO DAILY 11/03/15 [History] Metoprolol XL (24 HR) Succ [Toprol Xl] 12.5 mg PO DAILY #30 tab.er.24h 02/28/17 [Rx] Furosemide [Lasix] 40 mg PO BID 04/14/18 [History] metFORMIN [Glucophage] 500 mg PO BID 11/19/18 [History] Apixaban [Eliquis] 5 mg PO BID #60 tablet 11/20/18 [Rx] Aspirin Enteric Coated [Aspirin EC] 81 mg PO DAILY #90 tablet. 11/20/18 [Rx] Atorvastatin [Lipitor] 40 mg PO HS #30 tablet 11/20/18 [Rx] Allergies/Adverse Reactions: Allergy/AdvReac Type Severity Reaction Status Date / Time No Known Allergies Allergy Verified 04/13/18 05:42 Date of admission: 11/19/18 17:12 Primary care physician: Shirley Sebastian CNP Consults: 11/20/18 08:49 Consult to Nurse Navigator [CONS] Routine Comment: CHF 11/20/18 10:08 Consult to Cardiology [CONS] Routine Comment: Consulting Provider: Cardiology Makenna Reason for Consult: acute decompensated HF, limited echo revealed drop in EF. Call Completed: Yes - Constitutional Vitals: Temp Pulse Resp BP Pulse Ox 98.0 F 64 17 120/68 96 11/20/18 12:11 11/20/18 12:11 11/20/18 12:11 11/20/18 12:11 11/20/18 12:11 Exam: General: Patient is alert, oriented 3. Head: Atraumatic, normal inspection, normocephalic. Eye: EOMI, PERRLA, no scleral icterus noted. ENT: Mucous membranes moist. No odontogenic infection noted. Neck: Normal inspection, no meningismus. Respiratory: No respiratory distress, rhonchi, or wheezes noted. Cardiovascular: Regular rate and regular rhythm, S1 and S2 audible. No murmurs, rubs, or gallops. GI: Soft, nondistended, normal bowel sounds. Extremities:No joint swelling, pedal edema, or tenderness noted. Neurological: Alert, oriented 3, no focal deficits. Psychiatric: normal affect, normal mood. Skin: Dry, intact, warm. Normal color. No rashes. - Patient Status Disposition: Home, Self-Care Condition: Good Functional capacity at discharge: independent ambulation Overall status at discharge: patient is back to baseline - Discharge Instructions Follow Up With: Shirley Sebastian CNP [Primary Care Provider] - 12/02/18 10:45 am Dilia Gomes MD [Partnered Physician] - 12/10/18 1:30 pm - Diet and Activity Activity: resume usual activities as tolerated Diet: low salt diet
--- NOTE | 2018-11-20 15:37 | Electrocardiograph Report ---
[address] [place], [place] [address] Test Date: 2018-11-20 Pat Name: Bakari Lang Department: 113 Room: 3B Gender: M Table Games Supervisor: : 1935 Requested By: Kun Fernandez Order Number: [id number] Reading MD: Angus Gomes Measurements Intervals [place] Rate: 65 P: PA: 0 QRS: -44 QRSD: 149 T: 105 QT: 445 QTc: 457 Interpretive Statements ATRIAL FIBRILLATION Right bundle branch block Electronically Signed On 11-20-2018 15:35:09 EDT by Angus Gomes
== END 2018-11-20 15:09 | disposition home or self-care (01) ==
LOC: SUATTDRO → EMEROOARM 14:19 → 3BNU 14:19
PROVIDERS: ADMIT Internal Medicine; ATTEND Internal Medicine